=== PATIENT | male | born 1980 | race Caucasian/White ===

== ENCOUNTER 2018-11-26 10:32 | Inpatient (IN) | payer OTHER ==
[2018-11-26 10:49] VITALS: BMI 24.2
--- NOTE | 2018-11-26 12:13 | HP ---
CIWA Score Nausea/Vomitin Muscle Tremors: 4-Moderate,w/Arms Extend Anxiety: 4-Mod. Anxious/Guarded Agitation: 4-Moderately Restless Paroxysmal Sweats: 1-Minimal Palms Moist Orientation: 0-Oriented Tacttile Disturbances: 1-Very Mild Itch/Numbness Auditory Disturbances: 0-None Visual Disturbances: 1-Very Mild Sensitivity Headache: 0-None Present CIWA-Ar Total Score: 17 - Admission Criteria OASAS Guidelines: Admission for Medically Managed Detox: Requires at least one of the followin. CIWA greater than 12 2. Seizures within the past 24 hours 3. Delirium tremens within the past 24 hours 4. Hallucinations within the past 24 hours 5. Acute intervention needed for co occurring medical disorder 6. Acute intervention needed for co occurring psychiatric disorder 7. Severe withdrawal that cannot be handled at a lower level of care (continued vomiting, continued diarrhea, abnormal vital signs) requiring intravenous medication and/or fluids 8. Admission ROS S - HPI Chief Complaint: detox from EtOH Allergies/Adverse Reactions: Allergies Allergy/AdvReac Type Severity Reaction Status Date / Time No Known Allergies Allergy Verified 11/26/18 10:43 History of Present Illness: 38M w/ pmh of depression, GERD presenting to [facility] for detox from EtOH. Drinks 10 tallboys + 1pint vodka for past few weeks. Latest drink was in the AM. Drinks first thing in the morning. First drink at 16yo, regular drinking at 21yo. Develops tremors after not drinking for one day. Blacked out 15-20x, has fallen and hit head but no CTH. Denies seizures. Smokes $400 crack daily for 4ys. Has snorted heroin a few months prior. Distant MJ. Smokes 1ppd. Went to rehab 1yr prior in [place]. Stayed alcohol-free for a few months. Longest duration of alcohol-free is from [id number] through . Never been incarcerated. 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 Has been living in his truck for one day, due to fighting with . - Ebola screening Have you traveled outside of the country in the last 21 days: No Have you had contact with anyone from an Ebola affected area: No Do you have a fever: No - Review of Systems EENT: denies: Blurred Vision, Eye Pain Respiratory: reports: Productive cough (light green phelgm). denies: Shortness of Breath Cardiac: denies: Chest Pain, Palpitations GI: reports: Nausea. denies: Constipated, Diarrhea, Vomiting : denies: Burning, Urgency Musculoskeletal: denies: Back Pain Integumentary: reports: Rash (psoraisis) Neuro: denies: Headache, Seizure, Ataxia Patient History - Patient Medical History Hx Asthma: No Hx Chronic Obstructive Pulmonary Disease (COPD): No Hx Cancer: No Hx Cardiac Disorders: No Hx Seizures: No Hx Diabetes: No Hx Liver Disease: Yes ([facility] 2018 for liver issues) Hx Renal Disease (ESRD): Yes ([facility] 2018 for kidney issues) - Patient Surgical History Past Surgical History: No - Smoking Cessation Smoking history: Current every day smoker Have you smoked in the past 12 months: Yes Aproximately how many cigarettes per day: 20 Initiated information on smoking cessation: No - Substances abused Alcohol Substance route: Oral Frequency: Daily Amount used: 10 24oz cans of beer Age of first use: 18 Date of last use: 11/26/18 Crack Substance route: Smoking Frequency: Daily Amount used: $400/day Age of first use: 23 Date of last use: 11/26/18 Family Disease History - Family Disease History Family Disease History: Diabetes: Father Admission Physical Exam S - Vital Signs Vital Signs: Vital Signs - 24 hr 11/26/18 11/26/18 10:40 11:19 Temperature 98.6 F 98.6 F Pulse Rate 96 H 96 H Respiratory 18 18 Rate Blood Pressure 145/86 145/86 - Physical General Appearance: Yes: No Apparent Distress, Tremorous, Anxious HEENTM: Yes: Normocephalic. No: Pale Conjunctivae R, Pale Conjunctivae L, Scleral Ictenus R, Scleral Ictenus L Respiratory: Yes: Lungs Clear, No Accessory Muscle Use. No: Crackles, Rhonchi Cardiology: Yes: Regular Rate, S1, S2. No: Bradycardia, Systolic Murmur Abdominal: Yes: Flat, Soft. No: Distended, Guarding, Tenderness Musculoskeletal: Yes: full range of Motion Extremities: Yes: Other (minor abrasions to RLE. Left palm with scaly rash and linear wound, healing; no erythema. Right hand with dorsal scaly rash) Neurological: Yes: Within Normal Limits, Fully Oriented, Alert Integumentary: Yes: Dry, Warm Breathalyzer - Breathalyzer Breathalyzer: 0 Urine Drug Screen - Test Device Lot number: [id number] Expiration date: 08/07/20 - Control Is test valid?: Yes - Results Drug screen NEGATIVE: No Urine drug screen results: KATY-Cocaine Inpatient Rehab Admission - Rehab Decision to Admit Inpatient rehab admission?: No
[2018-11-26] MEDS ORDERED: MENTHOL/PHENOL 1 EACH UD MM PRN (12:42)
[2018-11-26] MEDS ORDERED: hydrOXYzine PAMOATE 25 MG CAPSULE (FP) PO PRN (12:42)
[2018-11-26] MEDS ORDERED: MAGNESIUM CITRATE 300 ML BOTTLE PO PRN (12:42)
[2018-11-26] MEDS ORDERED: ACETAMINOPHEN 325 MG TABLET (FP) PO PRN ×2 (12:42)
[2018-11-26] MEDS ORDERED: chlordiazePOXIDE HCL 10 MG CAPSULE PO PRN (12:42)
[2018-11-26] MEDS ORDERED: MAGNESIUM HYDROX 2400MG/30ML ORAL SUSPENSION 30 ML CUP PO PRN (12:42)
[2018-11-26] MEDS ORDERED: IBUPROFEN 400 MG TABLET (FP) PO PRN (12:42)
--- NOTE | 2018-11-26 13:07 | PN ---
"Teaching Attending Note Name of Resident: Don Reid ATTENDING PHYSICIAN STATEMENT I saw and evaluated the patient. I reviewed the resident's note and discussed the case with the resident. I agree with the resident's findings and plan as documented. SUBJECTIVE: pt here requesting detox from etoh use , latest use this morning, current symptoms as above , daily use 10 tallboys + 1 pint vodka x 3 weeks , cocaine 400 $/day , prior blackouts/ falls while intoxicated , denies recent falls , denies seizures, + tremors . + DUI in the past , denies current legal issues, admits to driving after drinking alcohol, denies recent MVA or injuries to others. PMHX : GERD, depression , psoriasis . 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 Search Terms: kika goetz, 1980 Search Date: 11/26/2018 01:07:50 PM This report was requested by: Kitty Rubio | Reference #: [id number] There are no results for the search terms that you entered. Vital Signs - 24 hr 11/26/18 11/26/18 10:40 11:19 Temperature 98.6 F 98.6 F Pulse Rate 96 H 96 H Respiratory 18 18 Rate Blood Pressure 145/86 145/86 ASSESSMENT AND PLAN: ETOH abuse - LIbrium detox encouraged rehab ."
[2018-11-26] MEDS: chlordiazePOXIDE HCL 25 MG CAPSULE PO SCH ×2 (13:47→22:32)
[2018-11-26 18:11] LABS: HEMOGLOBIN 14.2 GM/dL (11.7-16.9); MCH 30.8 pg (25.7-33.7); MEAN CELL VOLUME 93.4 fl (80-96); MEAN PLT VOLUME 8.4 fl (7.5-11.1); PLATELET COUNT 233 K/MM3 (134-434); WHITE BLOOD COUNT 8.1 K/mm3 (4.0-10.0)
[2018-11-26 18:16] LABS: ALBUMIN 4.2 g/dl (3.4-5.0); BILIRUBIN,TOTAL 0.5 mg/dL (0.2-1); BLOOD UREA NITROGEN 8.1 mg/dL (7-18); CREATININE 0.9 mg/dL (0.55-1.3); POTASSIUM 3.9 mmol/L (3.5-5.1); TOT PROT 7.6 g/dl (6.4-8.2)
[2018-11-26] MEDS: THIAMINE HCL 100 MG TABLET (FP) PO SCH (22:31)
[2018-11-26] MEDS: METHOCARBAMOL 500 MG TABLET PO PRN (22:31)
[2018-11-26] MEDS: MELATONIN 5 MG TABLETS PO PRN (22:32)
[2018-11-26] MEDS: NICOTINE POLACRILEX 2 MG GUM BUC PRN (22:57)
[2018-11-27] MEDS: chlordiazePOXIDE HCL 25 MG CAPSULE PO SCH ×3 (05:45→22:58)
[2018-11-27] MEDS: BACITRACIN 15 GM TUBE TOPICAL OINTMENT TP SCH (09:23)
[2018-11-27] MEDS: PRENATAL VITAMINS W/ FOLIC ACID TABLET (FP) PO SCH (09:23)
[2018-11-27] MEDS: BISMUTH SUBSALICYLATE 524 MG/30 ML UD PO PRN (09:25)
[2018-11-27] MEDS: NICOTINE POLACRILEX 2 MG GUM BUC PRN ×2 (09:25→22:59)
--- NOTE | 2018-11-27 09:45 | PN ---
S CIWA - CIWA Score Nausea/Vomitin-No Nausea/No Vomiting Muscle Tremors: 3 Anxiety: 3 Agitation: 4-Moderately Restless Paroxysmal Sweats: 3 Orientation: 0-Oriented Tacttile Disturbances: 0-None Auditory Disturbances: 0-None Visual Disturbances: 0-None Headache: 0-None Present CIWA-Ar Total Score: 13 BHS Progress Note (SOAP) Subjective: sweats shakes interrupted sleep body aches anxiety Objective: 11/27/18 09:44 Vital Signs Temperature 97.7 F 11/27/18 07:48 Pulse Rate 63 11/27/18 07:48 Respiratory Rate 17 11/27/18 07:48 Blood Pressure 90/55 L 11/27/18 07:48 O2 Sat by Pulse Oximetry (%) Laboratory Tests 11/26/18 11/26/18 11/26/18 12:05 12:05 12:05 WBC 8.1 RBC 4.60 Hgb 14.2 Hct 43.0 MCV 93.4 MCH 30.8 MCHC 33.0 RDW 14.0 Plt Count 233 MPV 8.4 Sodium 140 Potassium 3.9 Chloride 103 Carbon Dioxide 30 Anion Gap 8 BUN 8.1 Creatinine 0.9 Est GFR (CKD-EPI)AfAm 125.13 Est GFR (CKD-EPI)NonAf 107.97 Random Glucose 102 Calcium 9.0 Total Bilirubin 0.5 AST 22 ALT 25 Alkaline Phosphatase 72 Total Protein 7.6 Albumin 4.2 RPR Titer Nonreactive labs noted aaox3 ambulating no acute distress Assessment: 11/27/18 09:44 withdrawals sx Plan: continue detox increase fluids
--- NOTE | 2018-11-27 11:12 | CONSULT ---
[facility] Psychiatric Consult - Data Date of interview: 11/27/18 Admission source: [facility] Identifying data: Patient is a 38 year old male, father of two, domiciled and employed. This is patient's first admission to detox at [facility]. Patient admitted to for alcohol and cocaine dependence. Substance Abuse History: - Smoking Cessation. Smoking history: Current every day smoker. Have you smoked in the past 12 months: Yes. Aproximately how many cigarettes per day: 20. Initiated information on smoking cessation: No. - Substances abused. Alcohol. Substance route: Oral. Frequency: Daily. Amount used: 10 24oz cans of beer. Age of first use: 18. Date of last use: . Crack. Substance route: Smoking. Frequency: Daily. Amount used: $ 400/day. Age of first use: 23. Date of last use: 11/26/18 Medical History: history of liver and kidney problems (labs are normal) Psychiatric History: Patient's first psychiatric contact was in his 20's after reporting depressive symptoms. He saw an outpatient psychiatrist in [place], [place] who diagnosed him with depression and prescribed him prozac. Patient denies history of psychiatric hospitalizations and suicide attempt. Mr. Joyner was seeing a psychiatrist ( several months ago) in [facility] and was prescribed prozac 40mg daily. States that he received a three month refill and continues to take the prozac. At present patient reports stable mood. Physical/Sexual Abuse/Trauma History: denies. Mental Status Exam - Mental Status Exam Alert and Oriented to: Time, Place, Person Cognitive Function: Good Patient Appearance: Well Groomed Mood: Euthymic Affect: Mood Congruent Patient Behavior: Cooperative Speech Pattern: Appropriate Voice Loudness: Normal Thought Process: Goal Oriented Thought Disorder: Not Present Hallucinations: Denies Suicidal Ideation: Denies Homicidal Ideation: Denies Insight/Judgement: Poor Sleep: Fair Appetite: Fair Muscle strength/Tone: Normal Gait/Station: Normal Psychiatric Findings - Problem List ([place] 1, 2,3) (1) Alcohol dependence Current Visit: Yes Status: Acute (2) Cocaine dependence Current Visit: Yes Status: Acute (3) Depressive disorder Current Visit: Yes Status: Chronic - Initial Treatment Plan Initial Treatment Plan: Psychoeducation provided. Detoxification in progress. Will order Prozac 40mg daily. Benefits and side effects discussed. Verbal consent given.
[2018-11-27] MEDS: THIAMINE HCL 100 MG TABLET (FP) PO SCH (22:57)
[2018-11-27] MEDS: MELATONIN 5 MG TABLETS PO PRN (23:44)
[2018-11-28] MEDS: chlordiazePOXIDE 5 MG CAPSULE PO SCH ×3 (05:13→22:10)
[2018-11-28] MEDS: PRENATAL VITAMINS W/ FOLIC ACID TABLET (FP) PO SCH (09:47)
[2018-11-28] MEDS: FLUoxetine HCL 20 MG CAPSULE (FP) PO SCH (09:47)
[2018-11-28] MEDS: BACITRACIN 15 GM TUBE TOPICAL OINTMENT TP SCH (09:48)
[2018-11-28] MEDS: NICOTINE POLACRILEX 2 MG GUM BUC PRN (09:50)
--- NOTE | 2018-11-28 11:14 | PN ---
S CIWA - CIWA Score Nausea/Vomitin-No Nausea/No Vomiting Muscle Tremors: 2 Anxiety: 3 Agitation: 2 Paroxysmal Sweats: 3 Orientation: 0-Oriented Tacttile Disturbances: 0-None Auditory Disturbances: 0-None Visual Disturbances: 0-None Headache: 2-Mild CIWA-Ar Total Score: 12 S Progress Note (SOAP) Subjective: c/o sweats, anxiety, headache, and mild shakes. Objective: 11/28/18 11:13 Vital Signs 11/28/18 11/28/18 11/28/18 03:30 06:00 09:42 Temperature 97.9 F 97.7 F Pulse Rate 69 81 Respiratory 18 18 18 Rate Blood Pressure 100/58 L 121/81 Lab Results WBC 8.1 K/mm3 (4.0-10.0) 11/26/18 12:05 RBC 4.60 M/mm3 (4.00-5.60) 11/26/18 12:05 Hgb 14.2 GM/dL (11.7-16.9) 11/26/18 12:05 Hct 43.0 % (35.4-49) 11/26/18 12:05 MCV 93.4 fl (80-96) 11/26/18 12:05 MCHC 33.0 g/dl (32.0-35.9) 11/26/18 12:05 RDW 14.0 % (11.9-15.9) 11/26/18 12:05 Plt Count 233 K/MM3 (134-434) 11/26/18 12:05 Sodium 140 mmol/L (136-145) 11/26/18 12:05 Potassium 3.9 mmol/L (3.5-5.1) 11/26/18 12:05 Chloride 103 mmol/L (98-107) 11/26/18 12:05 Carbon Dioxide 30 mmol/L (21-32) 11/26/18 12:05 Anion Gap 8 MMOL/L (8-16) 11/26/18 12:05 BUN 8.1 mg/dL (7-18) 11/26/18 12:05 Creatinine 0.9 mg/dL (0.55-1.3) 11/26/18 12:05 Random Glucose 102 mg/dL (74-106) 11/26/18 12:05 Calcium 9.0 mg/dL (8.5-10.1) 11/26/18 12:05 Labs pending. Assessment: 11/28/18 11:13 AOX3, in no acute distress. Full ROM, ambulating in the unit. Withdrawal symptoms. Plan: continue detox.
[2018-11-28] MEDS: MAG HYDROX/AL HYDROX/SIMETH 30 ML UNIT-DOSE CUP PO PRN (14:27)
[2018-11-28] MEDS: THIAMINE HCL 100 MG TABLET (FP) PO SCH (22:10)
[2018-11-28] MEDS: MELATONIN 5 MG TABLETS PO PRN (22:10)
[2018-11-28] MEDS: RANITIDINE HCL 150 MG TABLET (FP) PO SCH (22:10)
[2018-11-28] MEDS: METHOCARBAMOL 500 MG TABLET PO PRN (22:11)
[2018-11-28] MEDS: BISMUTH SUBSALICYLATE 524 MG/30 ML UD PO PRN (22:13)
[2018-11-29] MEDS ORDERED: chlordiazePOXIDE HCL 10 MG CAPSULE PO PRN
[2018-11-29] MEDS: chlordiazePOXIDE HCL 10 MG CAPSULE PO SCH ×3 (04:56→22:31)
[2018-11-29] MEDS: MAG HYDROX/AL HYDROX/SIMETH 30 ML UNIT-DOSE CUP PO PRN (04:57)
[2018-11-29] MEDS: BACITRACIN 15 GM TUBE TOPICAL OINTMENT TP SCH (09:46)
[2018-11-29] MEDS: BISMUTH SUBSALICYLATE 524 MG/30 ML UD PO PRN (09:48)
[2018-11-29] MEDS: PRENATAL VITAMINS W/ FOLIC ACID TABLET (FP) PO SCH (09:48)
[2018-11-29] MEDS: NICOTINE POLACRILEX 2 MG GUM BUC PRN (09:48)
[2018-11-29] MEDS: FLUoxetine HCL 20 MG CAPSULE (FP) PO SCH (09:49)
[2018-11-29] MEDS: RANITIDINE HCL 150 MG TABLET (FP) PO SCH (09:49)
[2018-11-29] MEDS: NICOTINE 21 MG/24 HOURS TOPICAL PATCH TD SCH (13:02)
[2018-11-29] MEDS ORDERED: ONDANSETRON *ODT* 4 MG TABLET SL PRN (16:07)
--- NOTE | 2018-11-29 16:07 | PN ---
S CIWA - CIWA Score Nausea/Vomitin-Mild Nausea/No Vomiting Muscle Tremors: 2 Anxiety: 2 Agitation: 2 Paroxysmal Sweats: 2 Orientation: 0-Oriented Tacttile Disturbances: 0-None Auditory Disturbances: 0-None Visual Disturbances: 0-None Headache: 0-None Present CIWA-Ar Total Score: 9 S Progress Note (SOAP) Subjective: Tremor, sweating, nausea. Patient request nicotine transdermal patch instead of nicorette gum, stating he smokes 1 ppd. Objective: 11/29/18 16:05 Last Vital Signs Temp Pulse Resp BP Pulse Ox 98.1 F 78 18 122/75 11/29/18 13:53 11/29/18 13:53 11/29/18 13:53 11/29/18 13:53 Laboratory Tests 11/26/18 11/26/18 11/26/18 12:05 12:05 12:05 WBC 8.1 RBC 4.60 Hgb 14.2 Hct 43.0 MCV 93.4 MCH 30.8 MCHC 33.0 RDW 14.0 Plt Count 233 MPV 8.4 Sodium 140 Potassium 3.9 Chloride 103 Carbon Dioxide 30 Anion Gap 8 BUN 8.1 Creatinine 0.9 Est GFR (CKD-EPI)AfAm 125.13 Est GFR (CKD-EPI)NonAf 107.97 Random Glucose 102 Calcium 9.0 Total Bilirubin 0.5 AST 22 ALT 25 Alkaline Phosphatase 72 Total Protein 7.6 Albumin 4.2 RPR Titer Nonreactive HIV 1&2 Ag/Ab, 4th Gen 11/26/18 12:05 WBC RBC Hgb Hct MCV MCH MCHC RDW Plt Count MPV Sodium Potassium Chloride Carbon Dioxide Anion Gap BUN Creatinine Est GFR (CKD-EPI)AfAm Est GFR (CKD-EPI)NonAf Random Glucose Calcium Total Bilirubin AST ALT Alkaline Phosphatase Total Protein Albumin RPR Titer HIV 1&2 Ag/Ab, 4th Gen Non reactive Labs reviewed Assessment: 11/29/18 16:05 Withdrawal sxs Plan: Continue detox Encouraged PO water intake Scheduled for discharge tomorrow Nicotine patch 21mg ordered for nicotine dependence
[2018-11-29] MEDS: METHOCARBAMOL 500 MG TABLET PO PRN (22:31)
[2018-11-29] MEDS: MELATONIN 5 MG TABLETS PO PRN (22:31)
[2018-11-29] MEDS: THIAMINE HCL 100 MG TABLET (FP) PO SCH (22:32)
[2018-11-30] MEDS ORDERED: chlordiazePOXIDE HCL 10 MG CAPSULE PO ONE (05:00)
[2018-11-30 06:56] VITALS: TEMP 97.7
--- NOTE | 2018-11-30 09:53 | DS ---
[facility] Detox Discharge Summary Admission Date: 11/26/18 Discharge Date: 11/30/18 - History Present History: Alcohol Dependence, Cocaine Dependence - Physical Exam Results Vital Signs: Vital Signs Temperature 97.7 F 11/30/18 06:00 Pulse Rate 65 11/30/18 06:00 Respiratory Rate 18 11/30/18 06:00 Blood Pressure 101/61 11/30/18 06:00 O2 Sat by Pulse Oximetry (%) - Treatment Hospital Course: Detox Protocol Followed, Detoxed Safely, Responded well, Discharged Condition Good, Rehab Referral Accepted Patient has Accepted a Rehab Referral to: pt declined rehab; referral provided - Medication Discharge Medications: Ambulatory Orders Prilosec Otc 20 mg PO PRN 11/26/18 Prozac 40 mg PO DAILY 11/26/18 - Diagnosis (1) Alcohol dependence Current Visit: Yes Status: Chronic Qualifiers: Substance use status: uncomplicated Qualified Code(s): F10.20 - Alcohol dependence, uncomplicated (2) Cocaine dependence Current Visit: Yes Status: Chronic Qualifiers: Substance use status: uncomplicated Qualified Code(s): F14.20 - Cocaine dependence, uncomplicated (3) Depressive disorder Current Visit: Yes Status: Chronic - AMA Did Patient Leave Against Medical Advice: No
[2018-11-30] MEDS: PRENATAL VITAMINS W/ FOLIC ACID TABLET (FP) PO SCH (10:33)
[2018-11-30] MEDS: RANITIDINE HCL 150 MG TABLET (FP) PO SCH (10:33)
[2018-11-30] MEDS: BACITRACIN 15 GM TUBE TOPICAL OINTMENT TP SCH (10:34)
[2018-11-30] MEDS: NICOTINE 21 MG/24 HOURS TOPICAL PATCH TD SCH (10:35)
[2018-11-30 11:01] VITALS: BP 103/60; PULSE 71
[2018-11-30] MEDS: FLUoxetine HCL 20 MG CAPSULE (FP) PO SCH (11:44)
== END 2018-11-30 11:59 | disposition home or self-care (01) | DRG 774 ==
LOC: YASAS 10:32 → Y6N 13:07
PROVIDERS: ADMIT Surgery; ATTEND Surgery
PROC: HZ2ZZZZ Detoxification Services for Substance Abuse Treatment (ICD-10-PCS; principal; 2018-11-26)
DX: F10.230 Alcohol dependence with withdrawal, uncomplicated (principal); F14.20 Cocaine dependence, uncomplicated; F17.210 Nicotine dependence, cigarettes, uncomplicated; F32.9 Major depressive disorder, single episode, unspecified; K21.9 Gastro-esophageal reflux disease without esophagitis; L40.9 Psoriasis, unspecified
CPT/HCPCS: 36415; 80053; 85027; 86593; 87389

== ENCOUNTER 2018-12-18 10:16 | Inpatient (IN) | payer OTHER ==
[2018-12-18 10:48] VITALS: BMI 25.7
--- NOTE | 2018-12-18 12:14 | HP ---
CIWA Score Nausea/Vomitin-Int. Nausea w/Dry Heave Muscle Tremors: 4-Moderate,w/Arms Extend Anxiety: 3 Agitation: 3 Paroxysmal Sweats: 3 Orientation: 1-Uncertain about Date Tacttile Disturbances: 0-None Auditory Disturbances: 0-None Visual Disturbances: 0-None Headache: 5-Severe (appropriate for detox) CIWA-Ar Total Score: 23 - Admission Criteria OASAS Guidelines: Admission for Medically Managed Detox: Requires at least one of the followin. CIWA greater than 12 2. Seizures within the past 24 hours 3. Delirium tremens within the past 24 hours 4. Hallucinations within the past 24 hours 5. Acute intervention needed for co occurring medical disorder 6. Acute intervention needed for co occurring psychiatric disorder 7. Severe withdrawal that cannot be handled at a lower level of care (continued vomiting, continued diarrhea, abnormal vital signs) requiring intravenous medication and/or fluids 8. Admitting History and Physical - Admission Chief Complaint: "I want to detox off alcohol and figure out where I got to go from here. My kicked me out." History of Present Illness: 38 year old male with alcohol dependence with withdrawals and also cocaine use disorder. He is drinking 1/5 of vodka daily with many beers. Relapsed just one week ago. Was in detox 3 weeks ago. He is using cocaine $200 per day also for past week. PMH: Rash on perineal area Psurg: None Homeless and not in long-term system because kicked him out of the house. Patient has no legal issues pending. Patient has poor support systems. - Past Medical History Gastrointestinal: Yes: GERD Psych: Yes: Depression - Smoking History Smoking history: Current every day smoker Have you smoked in the past 12 months: Yes Aproximately how many cigarettes per day: 20 Admission ROS S - HPI Chief Complaint: "I want to detox off alcohol and figure out where I got to go from here. My kicked me out." Allergies/Adverse Reactions: Allergies Allergy/AdvReac Type Severity Reaction Status Date / Time No Known Allergies Allergy Verified 12/18/18 10:43 History of Present Illness: 38 year old male with alcohol dependence with withdrawals and also cocaine use disorder. He is drinking 1/5 of vodka daily with many beers. Relapsed just one week ago. Was in detox 3 weeks ago. He is using cocaine $200 per day also for past week. PMH: Rash on perineal area Psurg: None Homeless and not in long-term system because kicked him out of the house. Patient has no legal issues pending. Patient has poor support systems. Exam Limitations: No Limitations - Ebola screening Have you traveled outside of the country in the last 21 days: No Have you had contact with anyone from an Ebola affected area: No Have you been sick,other than usual withdrawal symptoms: No Do you have a fever: No - Review of Systems Constitutional: Chills EENT: reports: No Symptoms Reported Respiratory: reports: No Symptoms reported Cardiac: reports: No Symptoms Reported GI: reports: Nausea, Vomiting, Abdominal cramping : reports: No Symptoms Reported Musculoskeletal: reports: No Symptoms Reported Integumentary: reports: Rash (perenial) Neuro: reports: No Symptoms reported Endocrine: reports: No Symptoms Reported Hematology: reports: No Symptoms Reported Psychiatric: reports: Depressed Other Systems: Reviewed and Negative Patient History - Patient Medical History Hx Asthma: No Hx Chronic Obstructive Pulmonary Disease (COPD): No Hx Cancer: No Hx Cardiac Disorders: No Hx Hypertension: No Hx Seizures: No Hx Diabetes: No Hx Gastrointestinal Disorders: No Hx Liver Disease: Yes ([facility] 2018 for liver issues) Hx Genitourinary Disorders: No Hx Sexually Transmitted Disorders: No Hx Renal Disease (ESRD): No Hx Depression: Yes Hx Suicide Attempt: No Hx Schizophrenia: No - Patient Surgical History Past Surgical History: No - PPD History Previous Implant?: Yes Documented Results: Negative w/proof Date: 11/28/18 Results: 00 PPD to be Administered?: No - Smoking Cessation Smoking history: Current every day smoker Have you smoked in the past 12 months: Yes Aproximately how many cigarettes per day: 20 Hx Chewing Tobacco Use: No Initiated information on smoking cessation: Yes 'Breaking Loose' booklet given: 12/18/18 - Substances abused Alcohol Substance route: Oral Frequency: Daily Amount used: 5th vodka 10 24oz cans of beer Age of first use: 18 Date of last use: 12/17/18 Crack Substance route: Smoking Frequency: Daily Amount used: $200 Age of first use: 23 Date of last use: 12/17/18 Admission Physical Exam BHS - Vital Signs Vital Signs: Vital Signs - 24 hr 12/18/18 10:43 Temperature 98.1 F Pulse Rate 94 H Respiratory 18 Rate Blood Pressure 130/72 - Physical General Appearance: Yes: Moderate Distress HEENTM: Yes: EOMI, Hearing grossly Normal, Normocephalic, Normal Voice, RENAN, Pharynx Normal Respiratory: Yes: Chest Non-Tender, Lungs Clear, Normal Breath Sounds, No Respiratory Distress, No Accessory Muscle Use Neck: Yes: No masses,lesions,Nodules, Supple, Trachea in good position Breast: Yes: Within Normal Limits Cardiology: Yes: Regular Rhythm, Regular Rate, S1, S2 Abdominal: Yes: Non Tender, Flat, Soft Genitourinary: Yes: Within Normal Limits Back: Yes: Normal Inspection Musculoskeletal: Yes: full range of Motion, Gait Steady Extremities: Yes: Normal Capillary Refill, Normal Inspection, Normal Range of Motion, Non-Tender Neurological: Yes: product marketing director II-XII NML intact, Fully Oriented, Alert, Motor Strength 5/5, Depressed Affect Integumentary: Yes: Normal Color, Warm Lymphatic: Yes: Within Normal Limits - Diagnostic (1) Cocaine dependence Current Visit: Yes Status: Chronic Qualifiers: Substance use status: uncomplicated Qualified Code(s): F14.20 - Cocaine dependence, uncomplicated (2) Depressive disorder Current Visit: Yes Status: Chronic Screened but not Admitted - Documentation of Visit Screened but not Admitted: No Breathalyzer - Breathalyzer Breathalyzer: 0 (last drank yesterday) Vital Signs - Vital Signs Vital signs refused: No Urine Drug Screen - Test Device Lot number: [id number] Expiration date: 08/07/20 - Control Is test valid?: Yes - Results Drug screen NEGATIVE: No Urine drug screen results: KATY-Cocaine, BZO-Benzodiazepines Inpatient Rehab Admission - Rehab Decision to Admit Inpatient rehab admission?: No
[2018-12-18] MEDS ORDERED: METHOCARBAMOL 500 MG TABLET PO PRN (12:20)
[2018-12-18] MEDS ORDERED: MAGNESIUM HYDROX 2400MG/30ML ORAL SUSPENSION 30 ML CUP PO PRN (12:20)
[2018-12-18] MEDS ORDERED: BISMUTH SUBSALICYLATE 524 MG/30 ML UD PO PRN (12:20)
[2018-12-18] MEDS ORDERED: ACETAMINOPHEN 325 MG TABLET (FP) PO PRN ×2 (12:20)
[2018-12-18] MEDS ORDERED: IBUPROFEN 400 MG TABLET (FP) PO PRN (12:20)
[2018-12-18] MEDS ORDERED: MAGNESIUM CITRATE 300 ML BOTTLE PO PRN (12:20)
[2018-12-18] MEDS ORDERED: hydrOXYzine PAMOATE 25 MG CAPSULE (FP) PO PRN (12:20)
[2018-12-18] MEDS ORDERED: MENTHOL/PHENOL 1 EACH UD MM PRN (12:20)
[2018-12-18] MEDS: chlordiazePOXIDE HCL 25 MG CAPSULE PO PRN (14:37)
[2018-12-18] MEDS: NICOTINE POLACRILEX 2 MG GUM BUC PRN ×3 (14:45→20:40)
[2018-12-18] MEDS: chlordiazePOXIDE HCL 25 MG CAPSULE PO SCH ×2 (17:41→22:09)
--- NOTE | 2018-12-18 18:05 | CONSULT ---
[facility] Psychiatric Consult - Data Date of interview: 12/18/18 Admission source: [facility] Identifying data: Patient is a 38 year old male, father of two, employed , but is currently homeless ( told him to leave the home.) This is one of multiple admissions for patient. Patient admitted to for alcohol and cocaine dependence. Substance Abuse History: Smoking Cessation. Smoking history: Current every day smoker. Have you smoked in the past 12 months: Yes. Aproximately how many cigarettes per day: 20. Hx Chewing Tobacco Use: No. Initiated information on smoking cessation: Yes. 'Breaking Loose' booklet given: 12/18/18. - Substances abused. Alcohol. Substance route: Oral. Frequency: Daily. Amount used: 5th vodka 10 24oz cans of beer. Age of first use: 18. Date of last use: 12/17/18. Crack. Substance route: Smoking. Frequency: Daily. Amount used: $200. Age of first use: 23. Date of last use: 12/17/18 Medical History: history of liver and kidney problems Psychiatric History: Patient's history remains consistent with previous visit. Patient's first psychiatric contact was in his 20's after reporting depressive symptoms. Diagnosis of MDD. He saw an outpatient psychiatrist in [place], [place] who diagnosed him with depression and prescribed him prozac. He reports past trials of accepting gabapentin and vistaril for anxiety. Patient denies history of psychiatric hospitalizations and suicide attempt. Mr. Joyner was seeing a psychiatrist ( several months ago) in [facility] and was prescribed prozac 40mg daily. States that he received a three month refill and continues to take prozac. At present patient reports stable mood. Physical/Sexual Abuse/Trauma History: denies. Mental Status Exam - Mental Status Exam Alert and Oriented to: Time, Place, Person Cognitive Function: Good Patient Appearance: Well Groomed Mood: Euthymic Affect: Mood Congruent Patient Behavior: Cooperative Speech Pattern: Appropriate Voice Loudness: Normal Thought Process: Goal Oriented Thought Disorder: Not Present Hallucinations: Denies Suicidal Ideation: Denies Homicidal Ideation: Denies Insight/Judgement: Poor Sleep: Fair Appetite: Fair Muscle strength/Tone: Normal Gait/Station: Normal Psychiatric Findings - Problem List ([place] 1, 2,3) (1) Cocaine dependence Current Visit: Yes Status: Chronic Qualifiers: Substance use status: uncomplicated Qualified Code(s): F14.20 - Cocaine dependence, uncomplicated (2) Depressive disorder Current Visit: Yes Status: Chronic (3) Alcohol dependence Current Visit: Yes Status: Acute Qualifiers: Substance use status: uncomplicated Qualified Code(s): F10.20 - Alcohol dependence, uncomplicated - Initial Treatment Plan Initial Treatment Plan: Psychoeducation provided. Detoxification in progress. Will continue Prozac 40mg daily + Vistaril 50mg q6h. Benefits and side effects discussed. Verbal consent given.
[2018-12-18] MEDS: CLOTRIMAZOLE/BETAMET DIPROP TOPICAL CREAM 45 GM TUBE TP SCH (22:08)
[2018-12-18] MEDS: THIAMINE HCL 100 MG TABLET (FP) PO SCH (22:09)
[2018-12-18] MEDS: hydrOXYzine PAMOATE 50 MG CAPSULE (FP) PO PRN (22:11)
[2018-12-18] MEDS: MELATONIN 5 MG TABLETS PO PRN (22:11)
[2018-12-19] MEDS: chlordiazePOXIDE HCL 25 MG CAPSULE PO SCH ×4 (06:32→22:04)
[2018-12-19] MEDS: PANTOPRAZOLE 40 MG TABLET (FP) PO SCH (10:38)
[2018-12-19] MEDS: PRENATAL VITAMINS W/ FOLIC ACID TABLET (FP) PO SCH (10:38)
[2018-12-19] MEDS: FLUoxetine HCL 20 MG CAPSULE (FP) PO SCH (10:38)
[2018-12-19] MEDS: NICOTINE 14 MG/24 HOURS TOPICAL PATCH TD SCH (10:38)
[2018-12-19] MEDS: CLOTRIMAZOLE/BETAMET DIPROP TOPICAL CREAM 45 GM TUBE TP SCH ×2 (10:38→22:04)
--- NOTE | 2018-12-19 12:53 | PN ---
S CIWA - CIWA Score Nausea/Vomitin-No Nausea/No Vomiting Muscle Tremors: 3 Anxiety: 3 Agitation: 3 Paroxysmal Sweats: 3 Orientation: 0-Oriented Tacttile Disturbances: 0-None Auditory Disturbances: 0-None Visual Disturbances: 0-None Headache: 0-None Present CIWA-Ar Total Score: 12 BHS Progress Note (SOAP) Subjective: anxiety sweats i want the 4mg of nicotine gum i smoke a pack a day Objective: 12/19/18 12:52 Vital Signs Temperature 97.3 F L 12/19/18 09:15 Pulse Rate 81 12/19/18 09:15 Respiratory Rate 18 12/19/18 09:15 Blood Pressure 114/76 12/19/18 09:15 O2 Sat by Pulse Oximetry (%) labs pending aaox3 ambulating no acute distress Assessment: 12/19/18 12:52 withdrawal sx Plan: continue detox increase fluids nicotine gum 40mg ordered as per pt request
[2018-12-19] MEDS: hydrOXYzine PAMOATE 50 MG CAPSULE (FP) PO PRN ×2 (14:47→23:18)
[2018-12-19] MEDS: MAG HYDROX/AL HYDROX/SIMETH 30 ML UNIT-DOSE CUP PO PRN (19:42)
[2018-12-19] MEDS: THIAMINE HCL 100 MG TABLET (FP) PO SCH (22:04)
[2018-12-19] MEDS: MELATONIN 5 MG TABLETS PO PRN (23:18)
[2018-12-20] MEDS: MAG HYDROX/AL HYDROX/SIMETH 30 ML UNIT-DOSE CUP PO PRN (03:11)
[2018-12-20] MEDS: chlordiazePOXIDE HCL 25 MG CAPSULE PO SCH ×4 (06:13→22:25)
[2018-12-20] MEDS: CLOTRIMAZOLE/BETAMET DIPROP TOPICAL CREAM 45 GM TUBE TP SCH ×2 (10:27→22:26)
[2018-12-20] MEDS: NICOTINE 14 MG/24 HOURS TOPICAL PATCH TD SCH (10:27)
[2018-12-20] MEDS: NICOTINE POLACRILEX 2 MG GUM BUC PRN ×4 (10:28→22:26)
[2018-12-20] MEDS: PRENATAL VITAMINS W/ FOLIC ACID TABLET (FP) PO SCH (10:28)
[2018-12-20] MEDS: PANTOPRAZOLE 40 MG TABLET (FP) PO SCH (10:28)
[2018-12-20] MEDS: FLUoxetine HCL 20 MG CAPSULE (FP) PO SCH (10:29)
[2018-12-20] MEDS: hydrOXYzine PAMOATE 50 MG CAPSULE (FP) PO PRN ×3 (10:31→23:09)
--- NOTE | 2018-12-20 14:19 | PN ---
S CIWA - CIWA Score Nausea/Vomitin-Mild Nausea/No Vomiting Muscle Tremors: 4-Moderate,w/Arms Extend Anxiety: 4-Mod. Anxious/Guarded Agitation: 3 Paroxysmal Sweats: 3 Orientation: 0-Oriented Tacttile Disturbances: 0-None Auditory Disturbances: 0-None Visual Disturbances: 0-None Headache: 0-None Present CIWA-Ar Total Score: 15 [facility] Progress Note (SOAP) Subjective: Sweating, diarrhea, tremor, interrupted sleep Objective: 12/20/18 14:17 Last Vital Signs Temp Pulse Resp BP Pulse Ox 97.7 F 91 H 16 123/73 12/20/18 13:15 12/20/18 13:15 12/20/18 13:15 12/20/18 13:15 Labs from 11/16/18 reviewed Assessment: 12/20/18 14:19 Withdrawal sxs Plan: Continue detox Encouraged PO water intake
[2018-12-20] MEDS: chlordiazePOXIDE HCL 25 MG CAPSULE PO PRN (18:59)
--- NOTE | 2018-12-20 21:11 | PN ---
[facility] Progress Note Note: Patient reports that he had a Panic Attack last night that significantly interfered with his sleep last night. Patient also reports history of Panic Attacks. Psychiatric Consultation ordered for Patient. PRN HS dose of Melatonin increased to 10 mg, PRN dose of Robaxin increased to 750 mg PO. Patient also advised to consider PRN Librium to help with Withdrawal symptoms and to assist with falling asleep, if necessary. Patient verbalized understanding of recommendations. Tani Francisco NP
[2018-12-20] MEDS: METHOCARBAMOL 500 MG TABLET PO PRN (21:22)
[2018-12-20] MEDS: THIAMINE HCL 100 MG TABLET (FP) PO SCH (22:25)
[2018-12-20] MEDS: MELATONIN 5 MG TABLETS PO PRN (22:25)
[2018-12-21] MEDS ORDERED: chlordiazePOXIDE HCL 10 MG CAPSULE PO PRN
[2018-12-21] MEDS: chlordiazePOXIDE HCL 10 MG CAPSULE PO SCH ×4 (05:47→22:12)
[2018-12-21] MEDS: NICOTINE POLACRILEX 2 MG GUM BUC PRN ×5 (05:48→19:27)
[2018-12-21] MEDS: METHOCARBAMOL 500 MG TABLET PO PRN ×2 (05:48→22:12)
[2018-12-21] MEDS: PRENATAL VITAMINS W/ FOLIC ACID TABLET (FP) PO SCH (10:14)
[2018-12-21] MEDS: PANTOPRAZOLE 40 MG TABLET (FP) PO SCH (10:14)
[2018-12-21] MEDS: FLUoxetine HCL 20 MG CAPSULE (FP) PO SCH (10:14)
[2018-12-21] MEDS: CLOTRIMAZOLE/BETAMET DIPROP TOPICAL CREAM 45 GM TUBE TP SCH ×2 (10:15→22:13)
[2018-12-21] MEDS: NICOTINE 14 MG/24 HOURS TOPICAL PATCH TD SCH (10:15)
[2018-12-21] MEDS: hydrOXYzine PAMOATE 50 MG CAPSULE (FP) PO PRN ×3 (10:18→22:12)
--- NOTE | 2018-12-21 11:43 | PN ---
[facility] Progress Note Note: Patient reports experiencing an episode of anxiety attack last night despite being on Prozac 40 mg/day and Vistaril 50 mg po Q 6 hrs prn. He claims that he uses because of experiencing these attacks. He requests to be ordered Klonopin. He was educated about treatment of anxiety attack in the face of co-morbidities including substance use. Vistaril order is changed to 50 mg po Q 4hrs prn for anxiety
--- NOTE | 2018-12-21 13:03 | PN ---
[facility] CIWA - CIWA Score Nausea/Vomitin-No Nausea/No Vomiting Muscle Tremors: 4-Moderate,w/Arms Extend Anxiety: 4-Mod. Anxious/Guarded Agitation: 4-Moderately Restless Paroxysmal Sweats: No Perspiration Orientation: 0-Oriented Tacttile Disturbances: 0-None Auditory Disturbances: 0-None Visual Disturbances: 0-None Headache: 0-None Present CIWA-Ar Total Score: 12 [facility] Progress Note (SOAP) Subjective: agitation anxiety Objective: 12/21/18 13:03 Vital Signs Temperature 98.1 F 12/21/18 09:24 Pulse Rate 66 12/21/18 09:24 Respiratory Rate 18 12/21/18 09:24 Blood Pressure 107/69 12/21/18 09:24 O2 Sat by Pulse Oximetry (%) aaox3 ambulating no acute distress Assessment: 12/21/18 13:03 withdrawals Plan: continue detox
[2018-12-21] MEDS: THIAMINE HCL 100 MG TABLET (FP) PO SCH (22:12)
[2018-12-21] MEDS: MELATONIN 5 MG TABLETS PO PRN (22:14)
[2018-12-22] MEDS: NICOTINE POLACRILEX 2 MG GUM BUC PRN ×3 (01:02→21:32)
[2018-12-22] MEDS: hydrOXYzine PAMOATE 50 MG CAPSULE (FP) PO PRN ×4 (03:33→21:25)
[2018-12-22] MEDS: chlordiazePOXIDE HCL 10 MG CAPSULE PO SCH ×2 (05:26→17:09)
[2018-12-22] MEDS: CLOTRIMAZOLE/BETAMET DIPROP TOPICAL CREAM 45 GM TUBE TP SCH ×2 (09:15→21:41)
[2018-12-22] MEDS: PANTOPRAZOLE 40 MG TABLET (FP) PO SCH (09:16)
[2018-12-22] MEDS: FLUoxetine HCL 20 MG CAPSULE (FP) PO SCH (09:16)
[2018-12-22] MEDS: NICOTINE 14 MG/24 HOURS TOPICAL PATCH TD SCH (09:16)
[2018-12-22] MEDS: PRENATAL VITAMINS W/ FOLIC ACID TABLET (FP) PO SCH (09:16)
[2018-12-22] MEDS: METHOCARBAMOL 500 MG TABLET PO PRN ×2 (09:22→21:25)
--- NOTE | 2018-12-22 10:41 | PN ---
S CIWA - CIWA Score Nausea/Vomitin-No Nausea/No Vomiting Muscle Tremors: 2 Anxiety: 1-Mildly Anxious Agitation: 1-Slight > Activity Paroxysmal Sweats: No Perspiration Orientation: 0-Oriented Tacttile Disturbances: 0-None Auditory Disturbances: 0-None Visual Disturbances: 0-None Headache: 0-None Present CIWA-Ar Total Score: 4 [facility] Progress Note (SOAP) Subjective: anxiety Objective: 12/22/18 10:40 Vital Signs Temperature 97.2 F L 12/22/18 09:20 Pulse Rate 94 H 12/22/18 09:20 Respiratory Rate 18 12/22/18 09:20 Blood Pressure 130/76 12/22/18 09:20 O2 Sat by Pulse Oximetry (%) aaox3 ambulating no acute distress Assessment: 12/22/18 10:40 mild withdrawal sx Plan: continue detox d/c in am
[2018-12-22] MEDS: THIAMINE HCL 100 MG TABLET (FP) PO SCH (21:24)
[2018-12-22] MEDS: MELATONIN 5 MG TABLETS PO PRN (21:26)
[2018-12-23] MEDS: NICOTINE POLACRILEX 2 MG GUM BUC PRN ×2 (03:00→09:02)
[2018-12-23] MEDS ORDERED: chlordiazePOXIDE HCL 10 MG CAPSULE PO ONE (05:00)
--- NOTE | 2018-12-23 08:42 | DS ---
[facility] Detox Discharge Summary Admission Date: 12/18/18 Discharge Date: 12/23/18 - History Present History: Alcohol Dependence - Physical Exam Results Vital Signs: Vital Signs Temperature 97.2 F L 12/23/18 07:29 Pulse Rate 64 12/23/18 07:29 Respiratory Rate 18 12/23/18 07:29 Blood Pressure 106/78 12/23/18 07:29 O2 Sat by Pulse Oximetry (%) Pertinent Admission Physical Exam Findings: pt arrived in withdrawals - Treatment Hospital Course: Detox Protocol Followed, Detoxed Safely, Responded well, Discharged Condition Good, Rehab Referral Accepted - Medication Discharge Medications: Ambulatory Orders Prilosec Otc 20 mg PO PRN 11/26/18 Fluoxetine HCl [Prozac -] 40 mg PO DAILY 12/18/18 - Diagnosis (1) Alcohol dependence Current Visit: Yes Status: Acute Qualifiers: Substance use status: uncomplicated Qualified Code(s): F10.20 - Alcohol dependence, uncomplicated (2) Cocaine dependence Current Visit: Yes Status: Chronic Qualifiers: Substance use status: uncomplicated Qualified Code(s): F14.20 - Cocaine dependence, uncomplicated (3) Depressive disorder Current Visit: Yes Status: Chronic - AMA Did Patient Leave Against Medical Advice: No
[2018-12-23] MEDS: METHOCARBAMOL 500 MG TABLET PO PRN (08:59)
[2018-12-23] MEDS: hydrOXYzine PAMOATE 50 MG CAPSULE (FP) PO PRN (08:59)
[2018-12-23] MEDS: PRENATAL VITAMINS W/ FOLIC ACID TABLET (FP) PO SCH (09:00)
[2018-12-23] MEDS: FLUoxetine HCL 20 MG CAPSULE (FP) PO SCH (09:00)
[2018-12-23] MEDS: NICOTINE 14 MG/24 HOURS TOPICAL PATCH TD SCH (09:00)
[2018-12-23] MEDS: PANTOPRAZOLE 40 MG TABLET (FP) PO SCH (09:00)
[2018-12-23] MEDS: CLOTRIMAZOLE/BETAMET DIPROP TOPICAL CREAM 45 GM TUBE TP SCH (09:50)
[2018-12-23 13:05] VITALS: BP 110/66; PULSE 69; TEMP 97.9
== END 2018-12-23 13:20 | disposition other institution (70) | DRG 774 ==
LOC: YASAS 10:16 → Y6N 13:01
PROVIDERS: ADMIT Allergy & Immunology; ATTEND Allergy & Immunology
PROC: HZ2ZZZZ Detoxification Services for Substance Abuse Treatment (ICD-10-PCS; principal; 2018-12-18)
DX: F10.230 Alcohol dependence with withdrawal, uncomplicated (principal); F14.20 Cocaine dependence, uncomplicated; F17.210 Nicotine dependence, cigarettes, uncomplicated; F32.9 Major depressive disorder, single episode, unspecified; K76.9 Liver disease, unspecified

== ENCOUNTER 2018-12-23 13:29 | Inpatient (IN) | payer OTHER ==
[2018-12-23] MEDS ORDERED: MENTHOL/PHENOL 1 EACH UD MM PRN (14:13)
[2018-12-23] MEDS ORDERED: MAGNESIUM HYDROX 2400MG/30ML ORAL SUSPENSION 30 ML CUP PO PRN (14:13)
[2018-12-23] MEDS ORDERED: ACETAMINOPHEN 325 MG TABLET (FP) PO PRN (14:13)
[2018-12-23] MEDS ORDERED: LOPERAMIDE HCL 2 MG CAPSULE PO PRN (14:13)
[2018-12-23] MEDS ORDERED: guaiFENesin 200 MG/10 ML 10 ML UNIT-DOSE CUPS PO PRN (14:13)
[2018-12-23] MEDS ORDERED: MAGNESIUM CITRATE 300 ML BOTTLE PO PRN (14:13)
[2018-12-23] MEDS ORDERED: IBUPROFEN 400 MG TABLET (FP) PO PRN (14:13)
[2018-12-23] MEDS ORDERED: MAG HYDROX/AL HYDROX/SIMETH 30 ML UNIT-DOSE CUP PO PRN (14:13)
[2018-12-23] MEDS ORDERED: P-EPHED 60MG/TRIPROLIDI 2.5MG TABLET PO PRN (14:13)
--- NOTE | 2018-12-23 14:13 | HP ---
[facility] Rehab Assess/Revision - Admission History Admitted to Rehab from: [address] - Vital signs Vital Signs: Vital Signs Period Temp Pulse Resp BP Sys/Barney Pulse Ox Last 24 Hr 97.7 F 83 18 114/61 - Findings Detox History & Physical reviewed: Yes Concur with findings: Yes Inpatient Rehab Admission - Rehab Decision to Admit Inpatient rehab admission?: Yes - Initial Determination Are CD services needed?: Yes Free of communicable disease: Yes Not in need of hospitalization: Yes - Rehab Admission Criteria Previous failed treatment: Yes Poor recovery environment: Yes Comorbidities: Yes Lacks judgement: Yes Patient is meeting Inpatient Rehab admission criteria:: Yes
[2018-12-23] MEDS: hydrOXYzine PAMOATE 50 MG CAPSULE (FP) PO PRN ×2 (17:06→21:27)
[2018-12-23] MEDS: NICOTINE POLACRILEX 4 MG GUM BUC PRN ×2 (17:44→21:28)
[2018-12-23] MEDS: CLOTRIMAZOLE/BETAMET DIPROP TOPICAL CREAM 45 GM TUBE TP SCH (21:27)
[2018-12-23] MEDS: MELATONIN 5 MG TABLETS PO PRN (21:27)
[2018-12-23] MEDS: THIAMINE HCL 100 MG TABLET (FP) PO SCH (21:27)
[2018-12-24] MEDS: hydrOXYzine PAMOATE 50 MG CAPSULE (FP) PO PRN ×2 (02:24→10:17)
[2018-12-24] MEDS: NICOTINE POLACRILEX 4 MG GUM BUC PRN ×4 (06:27→21:20)
[2018-12-24] MEDS: PRENATAL VITAMINS W/ FOLIC ACID TABLET (FP) PO SCH (10:15)
[2018-12-24] MEDS: PANTOPRAZOLE 40 MG TABLET (FP) PO SCH (10:16)
[2018-12-24] MEDS: CLOTRIMAZOLE/BETAMET DIPROP TOPICAL CREAM 45 GM TUBE TP SCH ×3 (10:16→21:20)
[2018-12-24] MEDS: NICOTINE 21 MG/24 HOURS TOPICAL PATCH TD SCH (10:16)
--- NOTE | 2018-12-24 11:28 | CONSULT ---
[facility] Psychiatric Consult - Data Date of interview: 12/24/18 Admission source: [facility] Identifying data: Patient is a 38 year old male, father of two, employed , but is currently homeless ( told him to leave the home.) This is one of multiple admissions for patient. Patient admitted to for alcohol and cocaine dependence. Substance Abuse History: Smoking Cessation. Smoking history: Current every day smoker. Have you smoked in the past 12 months: Yes. Aproximately how many cigarettes per day: 20. Hx Chewing Tobacco Use: No. Initiated information on smoking cessation: Yes. 'Breaking Loose' booklet given: 12/18/18. - Substances abused. Alcohol. Substance route: Oral. Frequency: Daily. Amount used: 5th vodka 10 24oz cans of beer. Age of first use: 18. Date of last use: 12/17/18. Crack. Substance route: Smoking. Frequency: Daily. Amount used: $200. Age of first use: 23. Date of last use: 12/17/18 Medical History: history of liver and kidney problems Psychiatric History: Patient's first psychiatric contact was at 15 years of age due to hyperactivity and difficulty focusing. He was diagnosed with ADHD and prescribed psychostimulants. In his 20's Mr. Joyner reports being hospitalized for two months at [facility]. He was diagnosed with Bipolar disorder (denies history of tone) and prescribed psychotropic medications. While at [facility] he reports being tried on Depakote, risperdal , haldol, seroquel and SSRI's. Mr. Joyner also reports history of accepting vistaril and gabapentin from previous outpatient providers. Mr. Joyner was seeing a psychiatrist at [facility] who diagnosed him with depression and prescribed him Prozac 40mg daily. Mr. Joyner has not seen the psychiatrist in several months but continues to take prozac 40mg as he was given a three month prescription. At present patient reports feeling sad, worsening anxiety, and difficulty sleeping. Physical/Sexual Abuse/Trauma History: denies. Mental Status Exam - Mental Status Exam Alert and Oriented to: Time, Place, Person Cognitive Function: Good Patient Appearance: Well Groomed Mood: Sad Affect: Mood Congruent Patient Behavior: Appropriate, Cooperative Speech Pattern: Appropriate Voice Loudness: Normal Thought Process: Intact, Goal Oriented Thought Disorder: Not Present Hallucinations: Denies Suicidal Ideation: Denies Homicidal Ideation: Denies Insight/Judgement: Poor Sleep: Poorly Appetite: Fair Muscle strength/Tone: Normal Gait/Station: Normal Psychiatric Findings - Problem List ([place] 1, 2,3) (1) Mood disorder Current Visit: Yes Status: Suspected (2) Alcohol dependence Current Visit: Yes Status: Acute Qualifiers: Substance use status: uncomplicated Qualified Code(s): F10.20 - Alcohol dependence, uncomplicated (3) Cocaine dependence Current Visit: Yes Status: Chronic Qualifiers: Substance use status: uncomplicated Qualified Code(s): F14.20 - Cocaine dependence, uncomplicated (4) Depressive disorder Current Visit: Yes Status: Chronic - Initial Treatment Plan Initial Treatment Plan: Psychoeducation provided. Rehab in progress. Will d/c prozac 40mg. Will order Prozac 50mg + Buspar 10mg BID + Seroquel 50mg. Benefits and side effects discussed. Verbal consent given. 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
[2018-12-24] MEDS ORDERED: FLUoxetine HCL 20 MG CAPSULE (FP) PO SCH (12:15)
[2018-12-24] MEDS: FLUOXETINE HCL 40 MG, FLUOXETINE HCL 10 MG PO SCH (13:14)
[2018-12-24] MEDS: busPIRone HCL 10 MG TABLET (FP) PO SCH (21:19)
[2018-12-24] MEDS: QUEtiapine FUMARATE 50 MG TABLET PO SCH (21:19)
[2018-12-24] MEDS: MELATONIN 5 MG TABLETS PO PRN (21:19)
[2018-12-24] MEDS: THIAMINE HCL 100 MG TABLET (FP) PO SCH (21:19)
[2018-12-25] MEDS: NICOTINE POLACRILEX 4 MG GUM BUC PRN ×5 (00:31→23:14)
[2018-12-25] MEDS: CLOTRIMAZOLE/BETAMET DIPROP TOPICAL CREAM 45 GM TUBE TP SCH ×2 (10:13→21:40)
[2018-12-25] MEDS: NICOTINE 21 MG/24 HOURS TOPICAL PATCH TD SCH (10:13)
[2018-12-25] MEDS: FLUOXETINE HCL 40 MG, FLUOXETINE HCL 10 MG PO SCH ×2 (10:14→10:21)
[2018-12-25] MEDS: PRENATAL VITAMINS W/ FOLIC ACID TABLET (FP) PO SCH (10:14)
[2018-12-25] MEDS: PANTOPRAZOLE 40 MG TABLET (FP) PO SCH (10:14)
[2018-12-25] MEDS: hydrOXYzine PAMOATE 50 MG CAPSULE (FP) PO PRN ×2 (10:18→21:39)
[2018-12-25] MEDS: busPIRone HCL 10 MG TABLET (FP) PO SCH ×2 (13:34→21:40)
[2018-12-25] MEDS: THIAMINE HCL 100 MG TABLET (FP) PO SCH (21:39)
[2018-12-25] MEDS: QUEtiapine FUMARATE 50 MG TABLET PO SCH (21:39)
[2018-12-26] MEDS: NICOTINE POLACRILEX 4 MG GUM BUC PRN ×4 (06:31→21:21)
[2018-12-26] MEDS: PANTOPRAZOLE 40 MG TABLET (FP) PO SCH (09:48)
[2018-12-26] MEDS: PRENATAL VITAMINS W/ FOLIC ACID TABLET (FP) PO SCH (09:48)
[2018-12-26] MEDS: NICOTINE 21 MG/24 HOURS TOPICAL PATCH TD SCH (09:49)
[2018-12-26] MEDS: CLOTRIMAZOLE/BETAMET DIPROP TOPICAL CREAM 45 GM TUBE TP SCH ×2 (09:51→21:20)
[2018-12-26] MEDS: busPIRone HCL 10 MG TABLET (FP) PO SCH ×2 (10:53→21:19)
[2018-12-26] MEDS: FLUOXETINE HCL 40 MG, FLUOXETINE HCL 10 MG PO SCH (10:54)
[2018-12-26] MEDS: THIAMINE HCL 100 MG TABLET (FP) PO SCH (21:19)
[2018-12-26] MEDS: QUEtiapine FUMARATE 50 MG TABLET PO SCH (21:19)
[2018-12-26] MEDS: hydrOXYzine PAMOATE 50 MG CAPSULE (FP) PO PRN (21:20)
[2018-12-26] MEDS: MELATONIN 5 MG TABLETS PO PRN (21:20)
[2018-12-27] MEDS: PANTOPRAZOLE 40 MG TABLET (FP) PO SCH (09:49)
[2018-12-27] MEDS: PRENATAL VITAMINS W/ FOLIC ACID TABLET (FP) PO SCH (09:49)
[2018-12-27] MEDS: NICOTINE 21 MG/24 HOURS TOPICAL PATCH TD SCH (09:49)
[2018-12-27] MEDS: busPIRone HCL 10 MG TABLET (FP) PO SCH ×2 (09:49→21:16)
[2018-12-27] MEDS: NICOTINE POLACRILEX 4 MG GUM BUC PRN ×3 (09:50→21:18)
[2018-12-27] MEDS: FLUOXETINE HCL 40 MG, FLUOXETINE HCL 10 MG PO SCH (09:50)
[2018-12-27] MEDS: CLOTRIMAZOLE/BETAMET DIPROP TOPICAL CREAM 45 GM TUBE TP SCH ×2 (09:52→21:18)
[2018-12-27] MEDS: THIAMINE HCL 100 MG TABLET (FP) PO SCH (21:16)
[2018-12-27] MEDS: QUEtiapine FUMARATE 50 MG TABLET PO SCH (21:16)
[2018-12-27] MEDS: hydrOXYzine PAMOATE 50 MG CAPSULE (FP) PO PRN (21:18)
[2018-12-27] MEDS: MELATONIN 5 MG TABLETS PO PRN (21:18)
[2018-12-28] MEDS: NICOTINE POLACRILEX 4 MG GUM BUC PRN ×3 (08:16→21:36)
[2018-12-28] MEDS: PANTOPRAZOLE 40 MG TABLET (FP) PO SCH (10:18)
[2018-12-28] MEDS: PRENATAL VITAMINS W/ FOLIC ACID TABLET (FP) PO SCH (10:18)
[2018-12-28] MEDS: busPIRone HCL 10 MG TABLET (FP) PO SCH ×2 (10:18→21:39)
[2018-12-28] MEDS: FLUOXETINE HCL 40 MG, FLUOXETINE HCL 10 MG PO SCH (10:19)
[2018-12-28] MEDS: CLOTRIMAZOLE/BETAMET DIPROP TOPICAL CREAM 45 GM TUBE TP SCH ×2 (10:20→21:43)
[2018-12-28] MEDS: NICOTINE 21 MG/24 HOURS TOPICAL PATCH TD SCH (10:21)
[2018-12-28] MEDS: hydrOXYzine PAMOATE 50 MG CAPSULE (FP) PO PRN (17:27)
[2018-12-28] MEDS: THIAMINE HCL 100 MG TABLET (FP) PO SCH (21:33)
[2018-12-28] MEDS: MELATONIN 5 MG TABLETS PO PRN (21:33)
[2018-12-28] MEDS: QUEtiapine FUMARATE 50 MG TABLET PO SCH (21:33)
[2018-12-29] MEDS: FLUOXETINE HCL 40 MG, FLUOXETINE HCL 10 MG PO SCH (10:10)
[2018-12-29] MEDS: PRENATAL VITAMINS W/ FOLIC ACID TABLET (FP) PO SCH (10:10)
[2018-12-29] MEDS: PANTOPRAZOLE 40 MG TABLET (FP) PO SCH (10:10)
[2018-12-29] MEDS: CLOTRIMAZOLE/BETAMET DIPROP TOPICAL CREAM 45 GM TUBE TP SCH ×2 (10:12→21:56)
[2018-12-29] MEDS: NICOTINE 21 MG/24 HOURS TOPICAL PATCH TD SCH (10:12)
[2018-12-29] MEDS: hydrOXYzine PAMOATE 50 MG CAPSULE (FP) PO PRN (10:14)
[2018-12-29] MEDS: NICOTINE POLACRILEX 4 MG GUM BUC PRN ×3 (10:16→21:57)
[2018-12-29] MEDS: busPIRone HCL 10 MG TABLET (FP) PO SCH ×2 (11:00→21:54)
--- NOTE | 2018-12-29 12:16 | PN ---
Psychiatric Progress Note Vital Signs: Vital Signs Period Temp Pulse Resp BP Sys/Barney Pulse Ox Last 24 Hr 97.2 F 67 18-18 118/69 Date of Session: 12/29/18 Chief Complaint:: "i'm not sleeping well." HPI: Patient admitted to for alcohol and cocaine dependence. Patient reports difficulty sleeping. ROS: Patient is coherent, alert + oriented X3. Current Medications: Active Medications Generic Name Dose Route Start Last Admin Trade Name Freq PRN Reason Stop Dose Admin Acetaminophen 650 mg 12/23/18 14:13 Tylenol - PO Q4H PRN FEVER Al Hydroxide/Mg Hydroxide 30 ml 12/23/18 14:13 Mylanta Oral Suspension - PO Q6H PRN DYSPEPSIA Buspirone HCl 10 mg 12/24/18 22:00 12/28/18 21:39 Buspar - PO 10 mg BID ADAMA Administration Clotrimazole 1 applic 12/23/18 22:00 12/29/18 10:12 Lotrisone Cream (Large Tube) - TP Not Given BID ADAMA Eucalyptus/Menthol/Phenol/Sorbitol 1 each 12/23/18 14:13 Cepastat Lozenge - MM Q4H PRN SORE THROAT Fluoxetine HCl 40 mg/ 50 mg 12/24/18 12:50 12/29/18 10:10 Fluoxetine HCl 10 mg PO 50 mg DAILY ADAMA Administration Guaifenesin 10 ml 12/23/18 14:13 Robitussin - PO Q6H PRN COUGH Hydroxyzine Pamoate 50 mg 12/23/18 14:13 12/29/18 10:14 Vistaril - PO 50 mg Q4H PRN Administration AGITATION Ibuprofen 400 mg 12/23/18 14:13 Motrin - PO Q6H PRN Pain Level 4-6 Loperamide HCl 4 mg 12/23/18 14:13 Imodium - PO Q6H PRN DIARRHEA Magnesium Citrate 300 ml 12/23/18 14:13 Citroma - PO Q48H PRN CONSTIPATION Magnesium Hydroxide 30 ml 12/23/18 14:13 Milk Of Magnesia - PO DAILY PRN CONSTIPATION Melatonin 5 mg 12/23/18 22:00 12/28/18 21:33 Melatonin PO 5 mg HS PRN Administration INSOMNIA Nicotine 21 mg 12/24/18 10:00 12/29/18 10:12 Nicoderm Patch - TD 21 mg DAILY ADAMA Administration Nicotine Polacrilex 4 mg 12/23/18 14:13 12/29/18 10:16 Nicorette Gum - BUC 4 mg Q2H PRN Administration NICOTINE REPLACEMENT RX Pantoprazole Sodium 40 mg 12/24/18 10:00 12/29/18 10:10 Protonix - PO 40 mg DAILY ADAMA Administration Multivit/Folic Acid/Iron 1 tab 12/24/18 10:00 12/29/18 10:10 Vitamins (Sjr) - PO 1 tab DAILY ADAMA Administration Pseudoephedrine/Triprolidine 1 combo 12/23/18 14:13 Actifed - PO TID PRN NASAL CONGESTION Quetiapine Fumarate 50 mg 12/24/18 22:00 12/28/18 21:33 Seroquel - PO 50 mg HS ADAMA Administration Thiamine HCl 100 mg 12/23/18 22:00 12/28/18 21:33 Vitamin B1 - PO 100 mg HS ADAMA Administration Medication(s) Change(s): Yes. Current Side Effect: No Lab tests ordered: No Lab tests reviewed: Yes Provider note:: Patient reports difficulty sleeping despite accepting seroquel 50mg HS. Mr. Bernstein reports favorable effects from accepting belosomra 15mg in the past. Patient educated on the importance of proper sleep hygiene. Will order Belsomra 15mg HS. Benefits and side effects discussed. Verbal consent given. Total face to face time:: 20 Mental Status Exam - Mental Status Exam Alert and Oriented to: Time, Place, Person Cognitive Function: Good Patient Appearance: Well Groomed Mood: Euthymic Affect: Mood Congruent Patient Behavior: Appropriate, Cooperative Speech Pattern: Appropriate Voice Loudness: Normal Thought Process: Goal Oriented Thought Disorder: Not Present Hallucinations: Denies Suicidal Ideation: Denies Homicidal Ideation: Denies Insight/Judgement: Poor Sleep: Poorly Appetite: Fair Muscle strength/Tone: Normal Gait/Station: Normal Psychiatric Treatment Plan - Problem List (1) Mood disorder Current Visit: Yes (2) Alcohol dependence Current Visit: Yes Qualifiers: Substance use status: uncomplicated Qualified Code(s): F10.20 - Alcohol dependence, uncomplicated (3) Cocaine dependence Current Visit: Yes Qualifiers: Substance use status: uncomplicated Qualified Code(s): F14.20 - Cocaine dependence, uncomplicated (4) Depressive disorder Current Visit: Yes (5) Insomnia Current Visit: Yes
[2018-12-29] MEDS: THIAMINE HCL 100 MG TABLET (FP) PO SCH (21:54)
[2018-12-29] MEDS: QUEtiapine FUMARATE 50 MG TABLET PO SCH (21:55)
[2018-12-29] MEDS: MELATONIN 5 MG TABLETS PO PRN (21:55)
[2018-12-29] MEDS: SUVOREXANT 15 MG TABLET PO PRN (21:56)
[2018-12-30] MEDS: PANTOPRAZOLE 40 MG TABLET (FP) PO SCH (10:30)
[2018-12-30] MEDS: busPIRone HCL 10 MG TABLET (FP) PO SCH ×2 (10:30→21:41)
[2018-12-30] MEDS: PRENATAL VITAMINS W/ FOLIC ACID TABLET (FP) PO SCH (10:30)
[2018-12-30] MEDS: FLUOXETINE HCL 40 MG, FLUOXETINE HCL 10 MG PO SCH (10:30)
[2018-12-30] MEDS: CLOTRIMAZOLE/BETAMET DIPROP TOPICAL CREAM 45 GM TUBE TP SCH ×2 (10:31→21:40)
[2018-12-30] MEDS: NICOTINE 21 MG/24 HOURS TOPICAL PATCH TD SCH (10:31)
[2018-12-30] MEDS: NICOTINE POLACRILEX 4 MG GUM BUC PRN ×2 (10:32→19:05)
[2018-12-30] MEDS: MELATONIN 5 MG TABLETS PO PRN (21:40)
[2018-12-30] MEDS: QUEtiapine FUMARATE 50 MG TABLET PO SCH (21:40)
[2018-12-30] MEDS: THIAMINE HCL 100 MG TABLET (FP) PO SCH (21:40)
[2018-12-30] MEDS: SUVOREXANT 15 MG TABLET PO PRN (21:40)
[2018-12-31] MEDS: FLUOXETINE HCL 40 MG, FLUOXETINE HCL 10 MG PO SCH (10:32)
[2018-12-31] MEDS: PRENATAL VITAMINS W/ FOLIC ACID TABLET (FP) PO SCH (10:33)
[2018-12-31] MEDS: NICOTINE 21 MG/24 HOURS TOPICAL PATCH TD SCH (10:33)
[2018-12-31] MEDS: CLOTRIMAZOLE/BETAMET DIPROP TOPICAL CREAM 45 GM TUBE TP SCH ×2 (10:33→21:33)
[2018-12-31] MEDS: busPIRone HCL 10 MG TABLET (FP) PO SCH ×2 (10:33→21:34)
[2018-12-31] MEDS: PANTOPRAZOLE 40 MG TABLET (FP) PO SCH (10:33)
[2018-12-31] MEDS: NICOTINE POLACRILEX 4 MG GUM BUC PRN ×2 (10:35→21:35)
--- NOTE | 2018-12-31 15:20 | DS ---
[facility] Rehab Discharge Summary - [facility] Rehab Discharge Summary Admission Date: 12/23/18 Discharge Date: 01/01/19 - History Present History: Alcohol dependence, Cocaine dependence Additional Comments: Pt is a 38 y/o male with a hx of ANAY admitted to rehab and scheduled to discharge on 01/01/19. Pt met with his counselor and has been referred to [place], [place] for CD aftercare. Pt reports he has no PCP but goes to [facility] when needed. Pertinent Past History: GERD Depressive Disorder - Discharge Physical Exam Vital Signs: Vital Signs Temperature 97.4 F L 12/31/18 07:14 Pulse Rate 71 12/31/18 07:14 Respiratory Rate 18 12/31/18 07:14 Blood Pressure 112/71 12/31/18 07:14 O2 Sat by Pulse Oximetry (%) Alert o x 3 nad oob ambulating with steady gait cardiac:s1 s2,rrr lungs:cta,hany. abdomen:soft,+bs,nt,nd extremities/skin:no edema,full ROM,skin intact. Pertinent Admission Physical Exam Findings: Unremarkable - Treatment Discharge Condition: Discharge condition good Hospital Course: Rehabilitated safely and responded well CD aftercare referral accepted to [place], [place]. - Medication Discharge Medications: Ambulatory Orders Fluoxetine HCl [Prozac -] 40 mg PO DAILY 12/18/18 Clotrimazole/Betamet Diprop [Lotrisone Cream (Large Tube) -] 1 applic TP BID Pantoprazole Sodium [Protonix] 40 mg PO DAILY #14 tablet. 12/31/18 Buspirone HCl [Buspar -] 10 mg PO BID #60 tablet 01/01/19 Fluoxetine HCl [Prozac -] 10 mg PO DAILY #30 capsule 01/01/19 Fluoxetine HCl [Prozac] 40 mg PO DAILY #30 cap 01/01/19 Quetiapine Fumarate [Seroquel -] 50 mg PO HS #30 tablet 01/01/19 - Medication-Assisted Treatment (MAT) Medication-Assisted Treatment (MAT): No - Discharge Instructions Diet, activity, other medical instructions: Diet:Regular Activity: oob ad dick Other medical instructions:Follow up with CD aftercare at [facility] residential program. Follow up with primary care at [facility] Out[facility] clinic as needed. - Diagnosis (1) GERD (gastroesophageal reflux disease) Current Visit: Yes Status: Chronic Qualifiers: Esophagitis presence: esophagitis presence not specified Qualified Code(s) : K21.9 - Gastro-esophageal reflux disease without esophagitis (2) Alcohol dependence Current Visit: Yes Status: Chronic Qualifiers: Substance use status: uncomplicated Qualified Code(s): F10.20 - Alcohol dependence, uncomplicated (3) Cocaine dependence Current Visit: Yes Status: Chronic Qualifiers: Substance use status: uncomplicated Qualified Code(s): F14.20 - Cocaine dependence, uncomplicated - Follow-up Referral Minutes to complete discharge: 20 - AMA Did Patient Leave Against Medical Advice: No Additional Comments: Courtesy Rx for Protonix 40 mg po electronically sent to pt's [facility] pharmacy in [place], [place] for pickup.
[2018-12-31] MEDS: MELATONIN 5 MG TABLETS PO PRN (21:33)
[2018-12-31] MEDS: THIAMINE HCL 100 MG TABLET (FP) PO SCH (21:33)
[2018-12-31] MEDS: QUEtiapine FUMARATE 50 MG TABLET PO SCH (21:34)
[2018-12-31] MEDS: SUVOREXANT 15 MG TABLET PO PRN (21:36)
[2019-01-01 07:15] VITALS: BP 110/68; PULSE 66; TEMP 97.3
--- NOTE | 2019-01-01 08:25 | PN ---
[facility] Progress Note Note: {Patient is scheduled for discharge today. Scripts for 30 days supply of medications(Prozac 40 mg/day, Prozac 10 mg/day, Seroquel 50 mg/hs) are electronically transmitted to [facility] at [address] [place] [address]
--- NOTE | 2019-01-01 09:32 | PN ---
[facility] Progress Note Note: Pt is discharged today as scheduled. Alert o x 3,nad oob ambulating with steady gait. Vital Signs - 24 hr 01/01/19 01/01/19 00:30 07:14 Temperature 97.3 F L Pulse Rate 66 Respiratory 18 18 Rate Blood Pressure 110/68 Please see Rehab Discharge Summary
[2019-01-01] MEDS: PRENATAL VITAMINS W/ FOLIC ACID TABLET (FP) PO SCH (10:15)
[2019-01-01] MEDS: PANTOPRAZOLE 40 MG TABLET (FP) PO SCH (10:15)
[2019-01-01] MEDS: busPIRone HCL 10 MG TABLET (FP) PO SCH (10:15)
[2019-01-01] MEDS: CLOTRIMAZOLE/BETAMET DIPROP TOPICAL CREAM 45 GM TUBE TP SCH (10:16)
[2019-01-01] MEDS: FLUOXETINE HCL 40 MG, FLUOXETINE HCL 10 MG PO SCH (10:16)
[2019-01-01] MEDS: NICOTINE 21 MG/24 HOURS TOPICAL PATCH TD SCH (10:16)
== END 2019-01-01 10:55 | disposition home or self-care (01) | DRG 772 ==
LOC: YASAS 13:29 → Y5N 13:31
PROVIDERS: ADMIT Neuromusculoskeletal Medicine & OMM; ATTEND Neuromusculoskeletal Medicine & OMM
PROC: HZ42ZZZ Group Counseling for Substance Abuse Treatment, Cognitive-Behavioral (ICD-10-PCS; principal; 2018-12-23)
DX: F10.20 Alcohol dependence, uncomplicated (principal); F14.20 Cocaine dependence, uncomplicated; F39 Unspecified mood [affective] disorder; F32.9 Major depressive disorder, single episode, unspecified; K21.9 Gastro-esophageal reflux disease without esophagitis; G47.00 Insomnia, unspecified

== ENCOUNTER 2020-01-27 01:04 | Inpatient (IN) | payer OTHER ==
[2020-01-27 01:39] VITALS: BMI 29.5
[2020-01-27] MEDS ORDERED: DICYCLOMINE HCL 10 MG CAPSULE PO PRN (01:50)
[2020-01-27] MEDS ORDERED: P-EPHED 60MG/TRIPROLIDI 2.5MG TABLET PO PRN (01:50)
[2020-01-27] MEDS ORDERED: MAG HYDROX/AL HYDROX/SIMETH 30 ML UNIT-DOSE CUP PO PRN (01:50)
[2020-01-27] MEDS ORDERED: ACETAMINOPHEN 325 MG TABLET (FP) PO PRN ×2 (01:50)
[2020-01-27] MEDS ORDERED: MAGNESIUM CITRATE 300 ML BOTTLE PO PRN (01:50)
[2020-01-27] MEDS ORDERED: MAGNESIUM HYDROX 2400MG/30ML ORAL SUSPENSION 30 ML CUP PO PRN (01:50)
[2020-01-27] MEDS ORDERED: guaiFENesin 200 MG/10 ML 10 ML UNIT-DOSE CUPS PO PRN (01:50)
[2020-01-27] MEDS ORDERED: METHOCARBAMOL 500 MG TABLET PO PRN (01:50)
[2020-01-27] MEDS ORDERED: IBUPROFEN 400 MG TABLET (FP) PO PRN (01:50)
[2020-01-27] MEDS ORDERED: MENTHOL/PHENOL 1 EACH UD MM PRN (01:50)
[2020-01-27] MEDS ORDERED: BISMUTH SUBSALICYLATE 262 MG/15 ML BTL PO PRN (01:50)
[2020-01-27] MEDS ORDERED: ONDANSETRON *ODT* 4 MG TABLET SL PRN (01:50)
[2020-01-27] MEDS: LORazepam 2 MG TABLET PO SCH ×4 (06:48→22:18)
[2020-01-27] MEDS: PRENATAL VITAMINS W/ FOLIC ACID TABLET (FP) PO SCH (10:03)
[2020-01-27] MEDS: NICOTINE 21 MG/24 HOURS TOPICAL PATCH TD SCH (10:03)
[2020-01-27] MEDS: NICOTINE POLACRILEX 2 MG GUM BUC PRN ×3 (10:04→22:35)
[2020-01-27 10:11] LABS: HEMATOCRIT 37.5 % (35.4-49); MCH 25.1 pg (25.7-33.7); MEAN CELL VOLUME 78.5 fl (80-96); PLATELET COUNT 306 K/MM3 (134-434); RBC 4.78 M/mm3 (4.00-5.60); RDW 18.8 % (11.9-15.9); WHITE BLOOD COUNT 8.6 K/mm3 (4.0-10.0)
[2020-01-27 10:12] LABS: POTASSIUM 4.4 mmol/L (3.5-5.1)
[2020-01-27 10:19] LABS: CALCIUM 8.8 mg/dL (8.5-10.1)
[2020-01-27 10:20] LABS: BLOOD UREA NITROGEN 19.7 mg/dL (7-18)
[2020-01-27 10:22] LABS: ALBUMIN 3.8 g/dl (3.4-5.0); CREATININE 1.2 mg/dL (0.55-1.3)
[2020-01-27 10:24] LABS: BILIRUBIN,TOTAL 0.8 mg/dL (0.2-1)
[2020-01-27 11:07] LABS: HIV INTERPRETATION NEGATIVE (NEGATIVE)
[2020-01-27] MEDS ORDERED: PNEUMOC 13-VAL CONJ-DIP CRM/PF 0.5 ML DISP.SYRIN IM ONE (12:00)
[2020-01-27] MEDS ORDERED: PNEUMOCOCCAL 23 VACCINE 0.5 ML VIAL IM ONE (12:00)
[2020-01-27] MEDS ORDERED: LOPERAMIDE HCL 2 MG CAPSULE PO ONE (14:30)
[2020-01-27] MEDS ORDERED: METHOCARBAMOL 750 MG TAB PO ONE (14:30)
[2020-01-27] MEDS ORDERED: MIRTAZAPINE 30 MG TABLET PO SCH (22:00)
[2020-01-27] MEDS: THIAMINE HCL 100 MG TABLET (FP) PO SCH (22:18)
[2020-01-27] MEDS: MIRTAZAPINE 15 MG TABLET (FP) PO SCH (22:18)
[2020-01-27] MEDS: MELATONIN 5 MG TABLETS PO SCH (22:18)
[2020-01-28] MEDS: LORazepam 1 MG TABLET PO SCH ×4 (06:30→22:10)
[2020-01-28] MEDS: PRENATAL VITAMINS W/ FOLIC ACID TABLET (FP) PO SCH (10:37)
[2020-01-28] MEDS: DULoxetine HCL 30 MG CAPSULE.DR PO SCH (10:37)
[2020-01-28] MEDS: PANTOPRAZOLE 20 MG TABLET PO SCH (10:37)
[2020-01-28] MEDS: NICOTINE POLACRILEX 2 MG GUM BUC PRN (10:38)
[2020-01-28] MEDS: NICOTINE 21 MG/24 HOURS TOPICAL PATCH TD SCH (10:38)
[2020-01-28] MEDS ORDERED: PNEUMOCOCCAL 23 VACCINE 0.5 ML VIAL IM ONE (12:15)
[2020-01-28] MEDS: LORazepam 1 MG TABLET PO PRN ×2 (15:56→20:55)
[2020-01-28 17:12] LABS: PH,URINE 5.5 (5.0-8.0); URINE APPEARANCE CLEAR; URINE BILIRUBIN NEGATIVE (NEGATIVE); URINE COLOR YELLOW; URINE GLUCOSE (UA) NEGATIVE (NEGATIVE); URINE KETONE TRACE (NEGATIVE); URINE LEUK ESTERASE NEGATIVE (NEGATIVE); URINE NITRITE NEGATIVE (NEGATIVE); URINE PROTEIN NEGATIVE (NEGATIVE); URINE UROBILINOGEN 0.2 mg/dL (0.2-1.0)
[2020-01-28] MEDS: hydrOXYzine PAMOATE 25 MG CAPSULE (FP) PO PRN (17:19)
[2020-01-28] MEDS: THIAMINE HCL 100 MG TABLET (FP) PO SCH (22:10)
[2020-01-28] MEDS: MIRTAZAPINE 15 MG TABLET (FP) PO SCH (22:10)
[2020-01-28] MEDS: MELATONIN 5 MG TABLETS PO SCH (22:10)
[2020-01-29] MEDS ORDERED: LORazepam 0.5 MG TABLET PO PRN
[2020-01-29] MEDS: LORazepam 0.5 MG TABLET PO SCH ×4 (06:53→22:21)
[2020-01-29] MEDS: NICOTINE 21 MG/24 HOURS TOPICAL PATCH TD SCH (10:12)
[2020-01-29] MEDS: PANTOPRAZOLE 20 MG TABLET PO SCH (10:12)
[2020-01-29] MEDS: DULoxetine HCL 30 MG CAPSULE.DR PO SCH (10:12)
[2020-01-29] MEDS: PRENATAL VITAMINS W/ FOLIC ACID TABLET (FP) PO SCH (10:12)
[2020-01-29] MEDS: hydrOXYzine PAMOATE 25 MG CAPSULE (FP) PO PRN ×3 (10:14→22:24)
[2020-01-29] MEDS: NICOTINE POLACRILEX 2 MG GUM BUC PRN ×3 (15:35→22:30)
[2020-01-29 20:53] VITALS: TEMP 97.3
[2020-01-29] MEDS: MIRTAZAPINE 15 MG TABLET (FP) PO SCH (22:21)
[2020-01-29] MEDS: THIAMINE HCL 100 MG TABLET (FP) PO SCH (22:21)
[2020-01-29] MEDS: MELATONIN 5 MG TABLETS PO SCH (22:22)
[2020-01-30] MEDS ORDERED: LORazepam 0.5 MG TABLET PO ONE (05:00)
[2020-01-30 09:22] VITALS: BP 121/80; PULSE 92
[2020-01-30] MEDS: PRENATAL VITAMINS W/ FOLIC ACID TABLET (FP) PO SCH (09:54)
[2020-01-30] MEDS: DULoxetine HCL 30 MG CAPSULE.DR PO SCH (09:54)
[2020-01-30] MEDS: PANTOPRAZOLE 20 MG TABLET PO SCH (09:54)
[2020-01-30] MEDS: NICOTINE 21 MG/24 HOURS TOPICAL PATCH TD SCH (09:55)
== END 2020-01-30 09:58 | disposition home or self-care (01) | DRG 774 ==
LOC: YASAS 01:04 → Y3N 02:05
PROVIDERS: ADMIT Allergy & Immunology; ATTEND Allergy & Immunology
PROC: HZ2ZZZZ Detoxification Services for Substance Abuse Treatment (ICD-10-PCS; principal; 2020-01-27)
DX: F10.230 Alcohol dependence with withdrawal, uncomplicated (principal); F13.230 Sedative, hypnotic or anxiolytic dependence with withdrawal, uncomplicated; F14.20 Cocaine dependence, uncomplicated; F17.210 Nicotine dependence, cigarettes, uncomplicated; F19.280 Other psychoactive substance dependence with psychoactive substance-induced anxiety disorder; F19.282 Other psychoactive substance dependence with psychoactive substance-induced sleep disorder; F31.9 Bipolar disorder, unspecified; F90.9 Attention-deficit hyperactivity disorder, unspecified type; G40.909 Epilepsy, unspecified, not intractable, without status epilepticus; K21.9 Gastro-esophageal reflux disease without esophagitis; R63.8 Other symptoms and signs concerning food and fluid intake; Z56.0 Unemployment, unspecified; Z59.0 Homelessness
CPT/HCPCS: 36415; 80053; 81003; 85027; 86780; 87389; 90732; 93005; 93010; C9803; G0009; U0003

== ENCOUNTER 2020-09-14 14:00 | Inpatient (IN) | payer OTHER ==
[2020-09-14 16:05] VITALS: BMI 25.7
[2020-09-14] MEDS ORDERED: MAGNESIUM CITRATE 300 ML BOTTLE PO PRN (19:22)
[2020-09-14] MEDS ORDERED: MAG HYDROX/AL HYDROX/SIMETH 30 ML UNIT-DOSE CUP PO PRN (19:22)
[2020-09-14] MEDS ORDERED: ONDANSETRON *ODT* 4 MG TABLET SL PRN (19:22)
[2020-09-14] MEDS ORDERED: MENTHOL/PHENOL 1 EACH UD MM PRN (19:22)
[2020-09-14] MEDS ORDERED: MAGNESIUM HYDROX 2400MG/30ML ORAL SUSPENSION 30 ML CUP PO PRN (19:22)
[2020-09-14] MEDS ORDERED: NICOTINE POLACRILEX 2 MG GUM BUC PRN (19:22)
[2020-09-14] MEDS ORDERED: ACETAMINOPHEN 325 MG TABLET (FP) PO PRN ×2 (19:22)
[2020-09-14] MEDS ORDERED: BISMUTH SUBSALICYLATE 524 MG/30 ML PO PRN (19:22)
[2020-09-14] MEDS: LORazepam 1 MG TABLET PO PRN (20:44)
[2020-09-14] MEDS: IBUPROFEN 400 MG TABLET (FP) PO PRN (20:45)
[2020-09-14] MEDS: PRENATAL VITAMINS W/ FOLIC ACID TABLET (FP) PO SCH (20:48)
[2020-09-14] MEDS: NICOTINE 21 MG/24 HOURS TOPICAL PATCH TD SCH (20:48)
[2020-09-14] MEDS: LORazepam 2 MG TABLET PO SCH (23:16)
[2020-09-14] MEDS: ATORVASTATIN CA 10 MG TABLET (FP) PO SCH (23:16)
[2020-09-14] MEDS: MELATONIN 5 MG TABLETS PO SCH (23:16)
[2020-09-14] MEDS: THIAMINE HCL 100 MG TABLET (FP) PO SCH (23:17)
[2020-09-14] MEDS: hydrOXYzine PAMOATE 25 MG CAPSULE (FP) PO SCH (23:17)
[2020-09-15] MEDS: LORazepam 2 MG TABLET PO SCH ×4 (05:52→22:48)
[2020-09-15] MEDS: hydrOXYzine PAMOATE 25 MG CAPSULE (FP) PO SCH ×2 (05:53→10:21)
[2020-09-15] MEDS: NICOTINE 21 MG/24 HOURS TOPICAL PATCH TD SCH (10:20)
[2020-09-15] MEDS: PRENATAL VITAMINS W/ FOLIC ACID TABLET (FP) PO SCH (10:20)
[2020-09-15] MEDS: PANTOPRAZOLE 20 MG TABLET PO SCH (10:21)
[2020-09-15] MEDS: IBUPROFEN 400 MG TABLET (FP) PO PRN ×2 (10:21→17:38)
[2020-09-15 13:08] LABS: HEMATOCRIT 43.5 % (35.4-49); HEMOGLOBIN 14.5 GM/dL (11.7-16.9); MCH 29.8 pg (25.7-33.7); MCHC 33.3 g/dl (32.0-35.9); MEAN CELL VOLUME 89.4 fl (80-96); MEAN PLT VOLUME 8.8 fl (7.5-11.1); PLATELET COUNT 204 10^3/uL (134-434); RBC 4.87 M/mm3 (4.00-5.60); RDW 15.1 % (11.9-15.9); WHITE BLOOD COUNT 5.1 K/mm3 (4.0-10.0)
[2020-09-15 13:42] LABS: ALBUMIN 3.3 g/dl (3.4-5.0); BLOOD UREA NITROGEN 13.8 mg/dL (7-18); CALCIUM 8.7 mg/dL (8.5-10.1)
[2020-09-15 13:45] LABS: BILIRUBIN,TOTAL 0.7 mg/dL (0.2-1)
[2020-09-15 13:46] LABS: TOT PROT 6.3 g/dl (6.4-8.2)
[2020-09-15] MEDS: ERYTHROMYCIN 0.5% OPHTHALMIC OINTMENT 3.5 GM TUBE OD SCH (15:07)
[2020-09-15] MEDS: LORazepam 1 MG TABLET PO PRN (15:11)
[2020-09-15] MEDS: THIAMINE HCL 100 MG TABLET (FP) PO SCH (22:48)
[2020-09-15] MEDS: ATORVASTATIN CA 10 MG TABLET (FP) PO SCH (22:48)
[2020-09-15] MEDS: MELATONIN 5 MG TABLETS PO SCH (22:48)
[2020-09-15] MEDS: METHOCARBAMOL 500 MG TABLET PO PRN (22:51)
[2020-09-16] MEDS: LORazepam 1 MG TABLET PO SCH ×4 (05:43→22:12)
[2020-09-16] MEDS: LORazepam 1 MG TABLET PO PRN ×3 (08:25→19:12)
[2020-09-16] MEDS: PRENATAL VITAMINS W/ FOLIC ACID TABLET (FP) PO SCH (10:20)
[2020-09-16] MEDS: PANTOPRAZOLE 20 MG TABLET PO SCH (10:20)
[2020-09-16] MEDS: NICOTINE 21 MG/24 HOURS TOPICAL PATCH TD SCH (10:21)
[2020-09-16] MEDS: ERYTHROMYCIN 0.5% OPHTHALMIC OINTMENT 3.5 GM TUBE OD SCH (12:03)
[2020-09-16] MEDS: hydrOXYzine PAMOATE 25 MG CAPSULE (FP) PO PRN ×2 (19:12→22:14)
[2020-09-16] MEDS: MELATONIN 5 MG TABLETS PO SCH (22:12)
[2020-09-16] MEDS: ATORVASTATIN CA 10 MG TABLET (FP) PO SCH (22:12)
[2020-09-16] MEDS: THIAMINE HCL 100 MG TABLET (FP) PO SCH (22:12)
[2020-09-16] MEDS: METHOCARBAMOL 500 MG TABLET PO PRN (22:14)
[2020-09-17] MEDS ORDERED: LORazepam 0.5 MG TABLET PO PRN
[2020-09-17] MEDS: LORazepam 0.5 MG TABLET PO SCH ×4 (05:32→22:18)
[2020-09-17] MEDS: hydrOXYzine PAMOATE 25 MG CAPSULE (FP) PO PRN ×3 (05:33→22:19)
[2020-09-17] MEDS: PANTOPRAZOLE 20 MG TABLET PO SCH (10:54)
[2020-09-17] MEDS: ERYTHROMYCIN 0.5% OPHTHALMIC OINTMENT 3.5 GM TUBE OD SCH (10:55)
[2020-09-17] MEDS: NICOTINE 21 MG/24 HOURS TOPICAL PATCH TD SCH (10:55)
[2020-09-17] MEDS: PRENATAL VITAMINS W/ FOLIC ACID TABLET (FP) PO SCH (10:55)
[2020-09-17] MEDS: THIAMINE HCL 100 MG TABLET (FP) PO SCH (22:18)
[2020-09-17] MEDS: MELATONIN 5 MG TABLETS PO SCH (22:18)
[2020-09-17] MEDS: METHOCARBAMOL 500 MG TABLET PO PRN (22:19)
[2020-09-17] MEDS: ATORVASTATIN CA 10 MG TABLET (FP) PO SCH (22:19)
[2020-09-18] MEDS ORDERED: LORazepam 0.5 MG TABLET PO ONE (05:00)
[2020-09-18] MEDS: hydrOXYzine PAMOATE 25 MG CAPSULE (FP) PO PRN ×2 (06:10→12:29)
[2020-09-18] MEDS: PRENATAL VITAMINS W/ FOLIC ACID TABLET (FP) PO SCH (10:30)
[2020-09-18] MEDS: NICOTINE 21 MG/24 HOURS TOPICAL PATCH TD SCH (10:30)
[2020-09-18] MEDS: PANTOPRAZOLE 20 MG TABLET PO SCH (10:30)
[2020-09-18] MEDS: ERYTHROMYCIN 0.5% OPHTHALMIC OINTMENT 3.5 GM TUBE OD SCH (10:31)
[2020-09-18 13:17] VITALS: BP 123/89; PULSE 91; TEMP 97.1
== END 2020-09-18 18:39 | disposition other institution (70) | DRG 774 ==
LOC: YASAS 14:00 → Y3N 19:36
PROVIDERS: ADMIT Allergy & Immunology; ATTEND Allergy & Immunology
PROC: HZ2ZZZZ Detoxification Services for Substance Abuse Treatment (ICD-10-PCS; principal; 2020-09-14)
DX: F10.230 Alcohol dependence with withdrawal, uncomplicated (principal); F14.20 Cocaine dependence, uncomplicated; F13.20 Sedative, hypnotic or anxiolytic dependence, uncomplicated; F17.210 Nicotine dependence, cigarettes, uncomplicated; F19.280 Other psychoactive substance dependence with psychoactive substance-induced anxiety disorder; F19.282 Other psychoactive substance dependence with psychoactive substance-induced sleep disorder; F39 Unspecified mood [affective] disorder; F41.9 Anxiety disorder, unspecified; F32.9 Major depressive disorder, single episode, unspecified; G47.00 Insomnia, unspecified; E78.5 Hyperlipidemia, unspecified; K21.9 Gastro-esophageal reflux disease without esophagitis; R63.4 Abnormal weight loss; Z68.25 Body mass index [BMI] 25.0-25.9, adult; S00.11XD Contusion of right eyelid and periocular area, subsequent encounter; Y00.XXXD Assault by blunt object, subsequent encounter
CPT/HCPCS: 36415; 80053; 85027; 86780; C9803; Q0162; U0003; U0005

== ENCOUNTER 2020-09-18 18:47 | Inpatient (IN) | payer OTHER ==
[2020-09-18] MEDS ORDERED: guaiFENesin 200 MG/10 ML 10 ML UNIT-DOSE CUPS PO PRN (19:24)
[2020-09-18] MEDS ORDERED: MAGNESIUM HYDROX 2400MG/30ML ORAL SUSPENSION 30 ML CUP PO PRN (19:24)
[2020-09-18] MEDS ORDERED: ACETAMINOPHEN 325 MG TABLET (FP) PO PRN (19:24)
[2020-09-18] MEDS ORDERED: LOPERAMIDE HCL 2 MG CAPSULE PO PRN (19:24)
[2020-09-18] MEDS ORDERED: MAGNESIUM CITRATE 300 ML BOTTLE PO PRN (19:24)
[2020-09-18] MEDS ORDERED: P-EPHED 60MG/TRIPROLIDI 2.5MG TABLET PO PRN (19:24)
[2020-09-18] MEDS ORDERED: MENTHOL/PHENOL 1 EACH UD MM PRN (19:24)
[2020-09-18] MEDS: MELATONIN 5 MG TABLETS PO SCH (21:53)
[2020-09-18] MEDS: hydrOXYzine PAMOATE 25 MG CAPSULE (FP) PO SCH (21:53)
[2020-09-18] MEDS: THIAMINE HCL 100 MG TABLET (FP) PO SCH (21:54)
[2020-09-18] MEDS: NICOTINE 7 MG/24 HOURS TOPICAL PATCH TD SCH (21:54)
[2020-09-19] MEDS: hydrOXYzine PAMOATE 25 MG CAPSULE (FP) PO SCH ×2 (06:11→10:06)
[2020-09-19] MEDS: PRENATAL VITAMINS W/ FOLIC ACID TABLET (FP) PO SCH (10:05)
[2020-09-19] MEDS: NICOTINE 7 MG/24 HOURS TOPICAL PATCH TD SCH (10:06)
[2020-09-19] MEDS: NICOTINE POLACRILEX 2 MG GUM BUC PRN ×3 (10:07→21:30)
[2020-09-19] MEDS ORDERED: METHOCARBAMOL 500 MG TABLET PO PRN (10:52)
[2020-09-19] MEDS: IBUPROFEN 400 MG TABLET (FP) PO PRN (12:56)
[2020-09-19] MEDS: THIAMINE HCL 100 MG TABLET (FP) PO SCH (21:28)
[2020-09-19] MEDS: MIRTAZAPINE 15 MG TABLET (FP) PO SCH (21:28)
[2020-09-19] MEDS: MELATONIN 5 MG TABLETS PO SCH (21:28)
[2020-09-19] MEDS: SUVOREXANT 10 MG TABLET PO PRN (21:30)
[2020-09-20] MEDS: NICOTINE POLACRILEX 2 MG GUM BUC PRN (06:39)
[2020-09-20] MEDS: PRENATAL VITAMINS W/ FOLIC ACID TABLET (FP) PO SCH (10:11)
[2020-09-20] MEDS: NICOTINE 21 MG/24 HOURS TOPICAL PATCH TD SCH (10:11)
[2020-09-20] MEDS: DULoxetine HCL 30 MG CAPSULE.DR PO SCH (10:11)
[2020-09-20] MEDS: IBUPROFEN 400 MG TABLET (FP) PO PRN ×2 (10:15→21:24)
[2020-09-20] MEDS: ERYTHROMYCIN 0.5% OPHTHALMIC OINTMENT 3.5 GM TUBE OD SCH (15:39)
[2020-09-20] MEDS: METHOCARBAMOL 500 MG TABLET PO PRN (21:22)
[2020-09-20] MEDS: THIAMINE HCL 100 MG TABLET (FP) PO SCH (21:22)
[2020-09-20] MEDS: MELATONIN 5 MG TABLETS PO SCH (21:22)
[2020-09-20] MEDS: MIRTAZAPINE 15 MG TABLET (FP) PO SCH (21:22)
[2020-09-20] MEDS: SUVOREXANT 10 MG TABLET PO PRN (22:44)
[2020-09-21] MEDS: DULoxetine HCL 30 MG CAPSULE.DR PO SCH (10:19)
[2020-09-21] MEDS: PRENATAL VITAMINS W/ FOLIC ACID TABLET (FP) PO SCH (10:19)
[2020-09-21] MEDS: NICOTINE 21 MG/24 HOURS TOPICAL PATCH TD SCH (10:19)
[2020-09-21] MEDS: ERYTHROMYCIN 0.5% OPHTHALMIC OINTMENT 3.5 GM TUBE OD SCH (10:19)
[2020-09-21] MEDS: IBUPROFEN 400 MG TABLET (FP) PO PRN ×2 (10:21→17:03)
[2020-09-21] MEDS: METHOCARBAMOL 500 MG TABLET PO PRN ×2 (10:21→17:06)
[2020-09-21] MEDS: MAG HYDROX/AL HYDROX/SIMETH 30 ML UNIT-DOSE CUP PO PRN (17:03)
[2020-09-21] MEDS: MIRTAZAPINE 15 MG TABLET (FP) PO SCH (21:57)
[2020-09-21] MEDS: THIAMINE HCL 100 MG TABLET (FP) PO SCH (21:57)
[2020-09-21] MEDS: SUVOREXANT 10 MG TABLET PO PRN (21:58)
[2020-09-21] MEDS: MELATONIN 5 MG TABLETS PO SCH (21:58)
[2020-09-22] MEDS: IBUPROFEN 400 MG TABLET (FP) PO PRN ×3 (03:16→18:57)
[2020-09-22] MEDS: PRENATAL VITAMINS W/ FOLIC ACID TABLET (FP) PO SCH (10:12)
[2020-09-22] MEDS: NICOTINE 21 MG/24 HOURS TOPICAL PATCH TD SCH (10:13)
[2020-09-22] MEDS: ERYTHROMYCIN 0.5% OPHTHALMIC OINTMENT 3.5 GM TUBE OD SCH (10:13)
[2020-09-22] MEDS: DULoxetine HCL 30 MG CAPSULE.DR PO SCH (10:13)
[2020-09-22] MEDS: NICOTINE POLACRILEX 2 MG GUM BUC PRN (13:15)
[2020-09-22] MEDS: hydrOXYzine PAMOATE 25 MG CAPSULE (FP) PO PRN (18:57)
[2020-09-22] MEDS ORDERED: SUVOREXANT 10 MG TABLET PO PRN (22:00)
[2020-09-22] MEDS: THIAMINE HCL 100 MG TABLET (FP) PO SCH (22:12)
[2020-09-22] MEDS: SUVOREXANT 20 MG TABLET PO PRN (22:12)
[2020-09-22] MEDS: MIRTAZAPINE 15 MG TABLET (FP) PO SCH (22:12)
[2020-09-23] MEDS: IBUPROFEN 400 MG TABLET (FP) PO PRN ×3 (06:28→21:27)
[2020-09-23] MEDS: PRENATAL VITAMINS W/ FOLIC ACID TABLET (FP) PO SCH (09:59)
[2020-09-23] MEDS: DULoxetine HCL 30 MG CAPSULE.DR PO SCH (09:59)
[2020-09-23] MEDS: NICOTINE 21 MG/24 HOURS TOPICAL PATCH TD SCH (10:00)
[2020-09-23] MEDS: ERYTHROMYCIN 0.5% OPHTHALMIC OINTMENT 3.5 GM TUBE OD SCH (10:00)
[2020-09-23] MEDS: hydrOXYzine PAMOATE 25 MG CAPSULE (FP) PO PRN (10:01)
[2020-09-23] MEDS: MAG HYDROX/AL HYDROX/SIMETH 30 ML UNIT-DOSE CUP PO PRN (14:22)
[2020-09-23] MEDS: MIRTAZAPINE 15 MG TABLET (FP) PO SCH (21:27)
[2020-09-23] MEDS: THIAMINE HCL 100 MG TABLET (FP) PO SCH (21:27)
[2020-09-23] MEDS: SUVOREXANT 20 MG TABLET PO PRN (21:29)
[2020-09-24] MEDS: PRENATAL VITAMINS W/ FOLIC ACID TABLET (FP) PO SCH (10:01)
[2020-09-24] MEDS: DULoxetine HCL 30 MG CAPSULE.DR PO SCH (10:01)
[2020-09-24] MEDS: ERYTHROMYCIN 0.5% OPHTHALMIC OINTMENT 3.5 GM TUBE OD SCH (10:02)
[2020-09-24] MEDS: NICOTINE 21 MG/24 HOURS TOPICAL PATCH TD SCH (10:02)
[2020-09-24] MEDS: IBUPROFEN 400 MG TABLET (FP) PO PRN ×2 (10:03→17:35)
[2020-09-24] MEDS: NICOTINE POLACRILEX 2 MG GUM BUC PRN (12:14)
[2020-09-24] MEDS: THIAMINE HCL 100 MG TABLET (FP) PO SCH (21:26)
[2020-09-24] MEDS: MIRTAZAPINE 15 MG TABLET (FP) PO SCH (21:26)
[2020-09-24] MEDS: SUVOREXANT 20 MG TABLET PO PRN (21:27)
[2020-09-25] MEDS: IBUPROFEN 400 MG TABLET (FP) PO PRN ×2 (06:54→14:02)
[2020-09-25] MEDS: NICOTINE 21 MG/24 HOURS TOPICAL PATCH TD SCH (10:26)
[2020-09-25] MEDS: PRENATAL VITAMINS W/ FOLIC ACID TABLET (FP) PO SCH (10:26)
[2020-09-25] MEDS: ERYTHROMYCIN 0.5% OPHTHALMIC OINTMENT 3.5 GM TUBE OD SCH (10:27)
[2020-09-25] MEDS: DULoxetine HCL 30 MG CAPSULE.DR PO SCH (11:18)
[2020-09-25] MEDS: THIAMINE HCL 100 MG TABLET (FP) PO SCH (21:32)
[2020-09-25] MEDS: MIRTAZAPINE 15 MG TABLET (FP) PO SCH (21:32)
[2020-09-25] MEDS: SUVOREXANT 20 MG TABLET PO PRN (21:33)
[2020-09-26] MEDS: IBUPROFEN 400 MG TABLET (FP) PO PRN ×2 (06:30→18:48)
[2020-09-26] MEDS: PRENATAL VITAMINS W/ FOLIC ACID TABLET (FP) PO SCH (10:05)
[2020-09-26] MEDS: NICOTINE 21 MG/24 HOURS TOPICAL PATCH TD SCH (10:06)
[2020-09-26] MEDS: ERYTHROMYCIN 0.5% OPHTHALMIC OINTMENT 3.5 GM TUBE OD SCH (10:06)
[2020-09-26] MEDS: DULoxetine HCL 30 MG CAPSULE.DR PO SCH (10:06)
[2020-09-26] MEDS: SUVOREXANT 20 MG TABLET PO PRN (21:31)
[2020-09-26] MEDS: MIRTAZAPINE 15 MG TABLET (FP) PO SCH (21:31)
[2020-09-26] MEDS: THIAMINE HCL 100 MG TABLET (FP) PO SCH (21:31)
[2020-09-26] MEDS: METHOCARBAMOL 500 MG TABLET PO PRN (21:32)
[2020-09-27] MEDS ORDERED: PT OWN MED DRAWER 7, Y5N ONE (09:03)
[2020-09-27] MEDS: PRENATAL VITAMINS W/ FOLIC ACID TABLET (FP) PO SCH (10:10)
[2020-09-27] MEDS: ERYTHROMYCIN 0.5% OPHTHALMIC OINTMENT 3.5 GM TUBE OD SCH (10:11)
[2020-09-27] MEDS: DULoxetine HCL 30 MG CAPSULE.DR PO SCH (10:11)
[2020-09-27] MEDS: NICOTINE 21 MG/24 HOURS TOPICAL PATCH TD SCH (10:11)
[2020-09-27] MEDS: IBUPROFEN 400 MG TABLET (FP) PO PRN ×2 (10:12→19:01)
[2020-09-27] MEDS: METHOCARBAMOL 500 MG TABLET PO PRN ×2 (10:12→21:34)
[2020-09-27] MEDS: SUVOREXANT 20 MG TABLET PO PRN (21:34)
[2020-09-27] MEDS: MIRTAZAPINE 15 MG TABLET (FP) PO SCH (21:34)
[2020-09-27] MEDS: THIAMINE HCL 100 MG TABLET (FP) PO SCH (21:34)
[2020-09-28] MEDS: PRENATAL VITAMINS W/ FOLIC ACID TABLET (FP) PO SCH (10:05)
[2020-09-28] MEDS: DULoxetine HCL 30 MG CAPSULE.DR PO SCH (10:05)
[2020-09-28] MEDS: ERYTHROMYCIN 0.5% OPHTHALMIC OINTMENT 3.5 GM TUBE OD SCH (10:05)
[2020-09-28] MEDS: NICOTINE 14 MG/24 HOURS TOPICAL PATCH TD SCH (10:05)
[2020-09-28] MEDS: MAG HYDROX/AL HYDROX/SIMETH 30 ML UNIT-DOSE CUP PO PRN ×2 (10:07→23:05)
[2020-09-28] MEDS: IBUPROFEN 400 MG TABLET (FP) PO PRN (14:10)
[2020-09-28] MEDS: METHOCARBAMOL 500 MG TABLET PO PRN ×2 (14:12→21:40)
[2020-09-28] MEDS: SUVOREXANT 20 MG TABLET PO PRN ×2 (21:39→21:40)
[2020-09-28] MEDS: THIAMINE HCL 100 MG TABLET (FP) PO SCH (21:40)
[2020-09-28] MEDS: MIRTAZAPINE 15 MG TABLET (FP) PO SCH (21:40)
[2020-09-29] MEDS: DULoxetine HCL 30 MG CAPSULE.DR PO SCH (09:55)
[2020-09-29] MEDS: NICOTINE 14 MG/24 HOURS TOPICAL PATCH TD SCH (09:56)
[2020-09-29] MEDS: PRENATAL VITAMINS W/ FOLIC ACID TABLET (FP) PO SCH (09:56)
[2020-09-29] MEDS: ERYTHROMYCIN 0.5% OPHTHALMIC OINTMENT 3.5 GM TUBE OD SCH (09:57)
[2020-09-29] MEDS: NICOTINE POLACRILEX 2 MG GUM BUC PRN ×2 (18:22→21:15)
[2020-09-29] MEDS: THIAMINE HCL 100 MG TABLET (FP) PO SCH (21:12)
[2020-09-29] MEDS: MIRTAZAPINE 15 MG TABLET (FP) PO SCH (21:12)
[2020-09-29] MEDS: SUVOREXANT 20 MG TABLET PO PRN (21:14)
[2020-09-29] MEDS: METHOCARBAMOL 500 MG TABLET PO PRN (21:14)
[2020-09-30] MEDS: PRENATAL VITAMINS W/ FOLIC ACID TABLET (FP) PO SCH (10:26)
[2020-09-30] MEDS: ERYTHROMYCIN 0.5% OPHTHALMIC OINTMENT 3.5 GM TUBE OD SCH (10:26)
[2020-09-30] MEDS: NICOTINE 14 MG/24 HOURS TOPICAL PATCH TD SCH (10:26)
[2020-09-30] MEDS: METHOCARBAMOL 500 MG TABLET PO PRN ×2 (10:26→21:33)
[2020-09-30] MEDS: DULoxetine HCL 30 MG CAPSULE.DR PO SCH (10:26)
[2020-09-30] MEDS: MAG HYDROX/AL HYDROX/SIMETH 30 ML UNIT-DOSE CUP PO PRN (10:28)
[2020-09-30] MEDS: NICOTINE POLACRILEX 2 MG GUM BUC PRN (15:33)
[2020-09-30] MEDS: hydrOXYzine PAMOATE 25 MG CAPSULE (FP) PO PRN (21:33)
[2020-09-30] MEDS: THIAMINE HCL 100 MG TABLET (FP) PO SCH (21:33)
[2020-09-30] MEDS: MIRTAZAPINE 15 MG TABLET (FP) PO SCH (21:33)
[2020-10-01] MEDS ORDERED: PT OWN MED DRAWER 7, Y5N ONE (09:05)
[2020-10-01] MEDS: PRENATAL VITAMINS W/ FOLIC ACID TABLET (FP) PO SCH (10:04)
[2020-10-01] MEDS: DULoxetine HCL 30 MG CAPSULE.DR PO SCH (10:04)
[2020-10-01] MEDS: NICOTINE 14 MG/24 HOURS TOPICAL PATCH TD SCH (10:05)
[2020-10-01] MEDS: ERYTHROMYCIN 0.5% OPHTHALMIC OINTMENT 3.5 GM TUBE OD SCH (10:05)
[2020-10-01] MEDS: NICOTINE POLACRILEX 2 MG GUM BUC PRN ×2 (10:06→21:38)
[2020-10-01] MEDS: THIAMINE HCL 100 MG TABLET (FP) PO SCH (21:38)
[2020-10-01] MEDS: MIRTAZAPINE 15 MG TABLET (FP) PO SCH (21:38)
[2020-10-01] MEDS: METHOCARBAMOL 500 MG TABLET PO PRN (21:38)
[2020-10-01] MEDS ORDERED: SUVOREXANT 10 MG TABLET PO PRN (22:00)
[2020-10-02] MEDS: DULoxetine HCL 30 MG CAPSULE.DR PO SCH (10:07)
[2020-10-02] MEDS: NICOTINE 14 MG/24 HOURS TOPICAL PATCH TD SCH (10:07)
[2020-10-02] MEDS: ERYTHROMYCIN 0.5% OPHTHALMIC OINTMENT 3.5 GM TUBE OD SCH (10:07)
[2020-10-02] MEDS: NICOTINE POLACRILEX 2 MG GUM BUC PRN (10:08)
[2020-10-02] MEDS: PRENATAL VITAMINS W/ FOLIC ACID TABLET (FP) PO SCH (10:08)
[2020-10-02] MEDS: THIAMINE HCL 100 MG TABLET (FP) PO SCH (21:17)
[2020-10-02] MEDS: MIRTAZAPINE 15 MG TABLET (FP) PO SCH (21:17)
[2020-10-02] MEDS: hydrOXYzine PAMOATE 25 MG CAPSULE (FP) PO PRN (21:18)
[2020-10-02] MEDS: METHOCARBAMOL 500 MG TABLET PO PRN (21:18)
[2020-10-03 08:19] VITALS: BP 94/64; PULSE 75; TEMP 97.3
[2020-10-03] MEDS: PRENATAL VITAMINS W/ FOLIC ACID TABLET (FP) PO SCH (09:08)
[2020-10-03] MEDS: ERYTHROMYCIN 0.5% OPHTHALMIC OINTMENT 3.5 GM TUBE OD SCH (09:08)
[2020-10-03] MEDS: NICOTINE 14 MG/24 HOURS TOPICAL PATCH TD SCH (09:08)
[2020-10-03] MEDS: DULoxetine HCL 30 MG CAPSULE.DR PO SCH (09:08)
== END 2020-10-03 09:20 | disposition home or self-care (01) | DRG 772 ==
LOC: YASAS 18:47 → Y5N 18:48
PROVIDERS: ADMIT Allergy & Immunology; ATTEND Allergy & Immunology
PROC: HZ42ZZZ Group Counseling for Substance Abuse Treatment, Cognitive-Behavioral (ICD-10-PCS; principal; 2020-09-18)
DX: F10.20 Alcohol dependence, uncomplicated (principal); F14.20 Cocaine dependence, uncomplicated; F13.20 Sedative, hypnotic or anxiolytic dependence, uncomplicated; F17.210 Nicotine dependence, cigarettes, uncomplicated; F19.280 Other psychoactive substance dependence with psychoactive substance-induced anxiety disorder; F19.282 Other psychoactive substance dependence with psychoactive substance-induced sleep disorder; F19.24 Other psychoactive substance dependence with psychoactive substance-induced mood disorder; F41.9 Anxiety disorder, unspecified; F32.9 Major depressive disorder, single episode, unspecified; G47.00 Insomnia, unspecified; K21.9 Gastro-esophageal reflux disease without esophagitis; R76.11 Nonspecific reaction to tuberculin skin test without active tuberculosis; Z86.69 Personal history of other diseases of the nervous system and sense organs; Z98.890 Other specified postprocedural states